=== PATIENT | female | born 2000 | race African-American/Black ===

== ENCOUNTER 2024-01-28 04:51 | Emergency (ER) | payer OTHER, SELFPAY ==
[2024-01-28 04:55] VITALS: BP 131/90; PULSE 124; RESP 18; TEMP 37; O2SAT 99; BMI 52.3
--- NOTE | 2024-01-28 05:25 | XR_ITS ---
Patient: DASH TEAGUE Facility:?[facility] Patient ID:?[id number] Site Patient ID:?[id number]. Site :?[id number] Study:?XRay-Chest 2 VIEW-01/28/2024 6:18:49 AM Ordering Physician:Braden Conroy Final Report: INDICATION: Chest pain. TECHNIQUE: Chest 2 views. COMPARISON: None. FINDINGS/ IMPRESSION: No acute cardiopulmonary process. No focal consolidation, effusion or pneumothorax. Cardiac size is within normal limit without pulmonary edema. No obvious osseous findings. Dictated by Adam Diggs MD @ 01/28/2024 6:33:47 AM Signed by:?Adam Diggs MD @01/28/2024 6:33:47 AM (Electronic Signature)
--- NOTE | 2024-01-28 05:27 | ED_ITS ---
HPI - General Adult General Date Seen: 01/28/24 <Marycarmen Garcia MD - Last Filed: 01/29/24 11:04> Chief complaint: Back Injury/Pain <Marycarmen Garcia MD - Last Filed: 01/29/24 11:04> Stated complaint: back pain <Marycarmen Garcia MD - Last Filed: 01/29/24 11:04> Time Seen by Provider: 01/28/24 04:55 <Marycarmen Garcia MD - Last Filed: 01/29/24 11:04> Source: patient and RN notes reviewed <Marycarmen Garcia MD - Last Filed: 01/29/24 11:04> Mode of arrival: ambulatory <Marycarmen Garcia MD - Last Filed: 01/29/24 11:04> Limitations: no limitations <Marycarmen Garcia MD - Last Filed: 01/29/24 11:04> History of Present Illness HPI narrative: Patient is a 23-year-old young woman who presents for evaluation of mid back pain which she says radiates down toward her low back. Pain started around 10 or 11 last night. She reports that she tried to sleep but at 3:00 a.m. got up due to inability to sleep because of pain. It is worse when she moves, better with rest. She says she had a temperature of a 100.9? earlier associated with some chills, has taken ibuprofen and NyQuil and fever has resolved. She denies urinary symptoms. Pain is pleuritic but she denies shortness of breath o r cough. No history of similar pain. Medical history reviewed, medications reviewed. <Marycarmen Garcia MD - Last Filed: 01/29/24 11:04> Related Data Home medications: Home Medications ?Medication ?Instructions ?Recorded ?Confirmed albuterol sulfate PO 01/28/24 clobetasol topical 01/28/24 clonazepam .ROUTE 01/28/24 okevqxeevmg-flegnpqiv-btbzpaha inhalation 01/28/24 lamotrigine .ROUTE 01/28/24 mepolizumab subcut 01/28/24 propranolol .ROUTE 01/28/24 tirzepatide (weight loss) subcut 01/28/24 venlafaxine PO 01/28/24 <Marycarmen Garcia MD - Last Filed: 01/29/24 11:04> Allergies/adverse reactions: Allergies Allergy/AdvReac Type Severity Reaction Status Date / Time levofloxacin (From Levaquin) Allergy Verified 01/28/24 05:03 <Marycarmen Garcia MD - Last Filed: 01/29/24 11:04> Review of Systems Status of ROS: Reports: 10 or more systems reviewed and unremarkable except as noted in History and below <Marycarmen Garcia MD - Last Filed: 01/29/24 11:04> PFSH [facility] Social History: Social History Smoking Status: Never smoker Do you use any of these nicotine containing products: None Non-prescribed substance use: denies use <Marycarmen Garcia MD - Last Filed: 01/29/24 11:04> Exam Narrative: Exam Narrative: Vital signs as noted above. In general, an alert, nontoxic young woman. She is breathing easily. Head: Normocephalic, atraumatic. Eyes: Pupils are equal reactive. Extraocular movements are full. Conjunctivae are normal. ENT: Mucous membranes are moist. Throat is normal. Neck: Supple without lymphadenopathy. Heart: Tachycardic and regular, no murmur. Lungs: Clear bilaterally. Few coarse crackles in the right base, no wheezes, no increased work of breathing. No CVA tenderness. Abdomen: Soft, nondistended, minimally tender. A little bit of epigastric tenderness without rebound guarding or rigidity. Negative Macedo's. Back: She has reproducible tenderness in the mid back just to the left of the spine in the lower thoracic area. Extremities: Well perfused. No edema. No calf tenderness. Pulses intact. Neurologic: Patient is alert and oriented to person and place. Speech is fluent. Face is symmetric. Moves all extremities equally. Affect: Anxious. Skin: Warm and dry. Well perfused. <Marycarmen Garcia MD - Last Filed: 01/29/24 11:04> Const: Vital Signs, click to edit/add: Vital Signs - 24 hr 01/28/24 04:55 01/28/24 06:07 Temperature 98.6 F Pulse Rate [Pulse Oximeter] 124 H 98 Respiratory Rate 18 18 Blood Pressure [Ri ght Upper Arm] 131/90 H 124/76 Pulse Oximetry 99 100 Oxygen Delivery Me thod Room Air Room Air <Marycarmen Garcia MD - Last Filed: 01/29/24 11:04> Vital Signs, click to edit/add: Vital Signs - 24 hr 01/28/24 04:55 01/28/24 06:07 Temperature 98.6 F Pulse Rate [Pulse Oximeter] 124 H 98 Respiratory Rate 18 18 Blood Pressure [Ri ght Upper Arm] 131/90 H 124/76 Pulse Oximetry 99 100 Oxygen Delivery Me thod Room Air Room Air <Patricia Call MD - Last Filed: 01/28/24 08:46> Documenting provider has reviewed patient's vital signs: yes <Marycarmen Garcia MD - Last Filed: 01/29/24 11:04> Course Course ED Course: Patient presents with back pain which seems to be somewhat reproducible wi th identifiable muscle spasm, but she notes fever at home, pleuritic pain, and she is tachycardic. Will evaluate with blood work, chest x-ray, urinalysis to rule out other potential causes such as pneumonia, pulmonary embolism, pyelonephritis, kidney stone, cholecystitis or biliary colic, pancreatitis etcetera. Will provide Toradol for pain to start. She had some pain relief with Toradol but not complete, had 4 mg of morphine IV as well. Tachycardia resolved, she complained of feeling more cold, temperature was rechecked and was normal. Labs notable for a normal white blood cell count, D-dimer very minimally elevated at 0.58, and LFTs were fairly significantly elevated with an AST in the 200s, ALT in the 100s. Repeat abdominal exam remained benign but I did order an ultrasound of the right upper quadrant to rule out cholecystitis or biliary colic. Lipase was normal. CRP was minimally elevated at 1.4 in she did have a very slight left shift with 78% neutrophils. Right upper quadrant ultrasound results a link below, sludge but no evidence of cholecystitis. Bilirubin and alk-phos are normal, and I think with absence of significant abdominal pain or tenderness, negative Macedo sign etcetera I do not think this represents cholecystitis. Chest x-ray by my review was negative, final radiology read was likewise negative. In an effort to be thorough, with her additional complaints of chills fever etcetera, I did order CT scan of the chest as well. This is pending at this time. This will allow us to further evaluate for pulmonary embolism as well as a more subtle pneumonia. This is signed out to the oncoming physician. I have reviewed all this with the patient. She does have reproducible muscular tenderness and I think overall my suspicion is that this is likely musculoskeletal back pain. If her CT scan does not show evidence of an alternative diagnosis I would recommend treatment with ibuprofen and cyclobenzaprine. Discussed that her elevated liver enzymes are likely related to fatty liver, overall symptoms right now are not suggestive of hepatitis, but we discussed that if abdominal pain worsens she develops nausea, vomiting, fevers, yellowing of skin or eyes etcetera that she should be seen again. Likewise, if pain is not improving over the next few days to week, follow-up with primary care. Dr. Sotomayor will follow-up on the CT scan, final disposition and plan pending. <Marycarmen Garcia MD - Last Filed: 01/29/24 11:04> Vital Signs Vital signs: Initial Vital Signs Temperature 98.6 F 01/28/24 04:55 Temperature Source Temporal Artery Scan 01/28/24 04:55 Pulse Rate 124 H 01/28/24 04:55 Respiratory Rate 18 01/28/24 04:55 Blood Pressure 131/90 H 01/28/24 04:55 Blood Pressure Mean 103 01/28/24 04:55 Blood Pressure Position Sitting 01/28/24 04:55 Pulse Oximetry 99 01/28/24 04:55 Oxygen Delivery Method Room Air 01/28/24 04:55 Vital Signs Temperature 98.6 F 01/28/24 04:55 Pulse Rate 124 H 01/28/24 04:55 Respiratory Rate 18 01/28/24 04:55 Blood Pressure 131/90 H 01/28/24 04:55 Pulse Oximetry 99 01/28/24 04:55 Oxygen Delivery Method Room Air 01/28/24 04:55 Temperature 98.6 F 01/28/24 04:55 Pulse Rate 91 01/28/24 08:59 Respiratory Rate 16 01/28/24 08:59 Blood Pressure 113/54 L 01/28/24 08:59 Pulse Oximetry 100 01/28/24 08:59 Oxygen Delivery Method Room Air 01/28/24 08:59 <Marycarmen Garcia MD - Last Filed: 01/29/24 11:04> Initial Vital Signs Temperature 98.6 F 01/28/24 04:55 Temperature Source Temporal Artery Scan 01/28/24 04:55 Pulse Rate 124 H 01/28/24 04:55 Respiratory Rate 18 01/28/24 04:55 Blood Pressure 131/90 H 01/28/24 04:55 Blood Pressure Mean 103 01/28/24 04:55 Blood Pressure Position Sitting 01/28/24 04:55 Pulse Oximetry 99 01/28/24 04:55 Oxygen Delivery Method Room Air 01/28/24 04:55 Vital Signs Temperature 98.6 F 01/28/24 04:55 Pulse Rate 124 H 01/28/24 04:55 Respiratory Rate 18 01/28/24 04:55 Blood Pressure 131/90 H 01/28/24 04:55 Pulse Oximetry 99 01/28/24 04:55 Oxygen Delivery Method Room Air 01/28/24 04:55 Temperature 98.6 F 01/28/24 04:55 Pulse Rate 91 01/28/24 08:59 Respiratory Rate 16 01/28/24 08:59 Blood Pressure 113/54 L 01/28/24 08:59 Pulse Oximetry 100 01/28/24 08:59 Oxygen Delivery Method Room Air 01/28/24 08:59 <Patricia Call MD - Last Filed: 01/28/24 08:46> Medications Administered Medications: Discontinued Medications Generic Name Dose Route Start Last Admin Trade Name Freq PRN Reason Stop Dose Admin Sodium Chloride 500 mls @ 500 mls/hr 01/28/24 05:25 01/28/24 06:07 0.9 % Sodium Chloride 500 Ml IV 01/28/24 06:24 Infused .Q1H ONE Infusion Ketorolac Tromethamine 15 mg 01/28/24 05:25 01/28/24 05:40 Ketorolac 15 Mg/Ml Inj IVP 01/28/24 05:26 15 mg ONCE ONE Administration <Marycarmen Garcia MD - Last Filed: 01/29/24 11:04> Discontinued Medications Generic Name Dose Route Start Last Admin Trade Name Freq PRN Reason Stop Dose Admin Sodium Chloride 500 mls @ 500 mls/hr 01/28/24 05:25 01/28/24 06:07 0.9 % Sodium Chloride 500 Ml IV 01/28/24 06:24 Infused .Q1H ONE Infusion Ketorolac Tromethamine 15 mg 01/28/24 05:25 01/28/24 05:40 Ketorolac 15 Mg/Ml Inj IVP 01/28/24 05:26 15 mg ONCE ONE Administration <Patricia Call MD - Last Filed: 01/28/24 08:46> Medical Decision Making Lab Data Labs: Lab Results 01/28/24 Range/Units 05:30 WBC 9.00 (4.50-11.00) K/uL RBC 5.16 (4.00-5.20) m/uL Hgb 13.4 (12.0-16.0) gm/dL Hct 43.1 (33.0-51.0) % MCV 84 (80-100) fL MCH 26 (26-34) pg MCHC 31 L (32-36) gm/dL RDW Coeff of [place] 13.6 (11.5-15.5) % Plt Count 339 (140-440) K/uL Neut % (Auto) 78.9 H (42.0-72.0) % Lymph % (Auto) 11.3 L (20-44) % [place] % (Auto) 7.4 (0.0-11.0) % Eos % (Auto) 1.4 (0.0-7.0) % Baso % (Auto) 0.3 (0.0-3.0) % Neut # (Auto) 7.10 H (1.7-7.0) K/uL Lymph # (Auto) 1.00 (0.90-2.90) K/uL [place] # (Auto) 0.70 (0.00-0.90) K/UL Eos # (Auto) 0.13 (0.00-0.50) K/uL Baso # (Auto) 0.03 (0.00-0.30) K/uL Abs Immat Gran (auto) 0.06 (0.00-0.30) K/uL Imm/Tot Granulo (auto) 0.7 % D-Dimer Quant (PE/DVT) 0.58 H (0.00-0.50) ug/ml Sodium 138 (135-149) mmol/L Potassium 4.1 (3.6-5.1) mmol/L Chloride 101 (96-114) mmol/L Carbon Dioxide 26 (20-32) mmol/L Anion Gap 11 (7-15) mEq/L BUN 14 (5-24) mg/dL Creatinine 0.8 (0.5-1.5) mg/dL Estimated Creat Clear 90.47 Estimated GFR 106 ml/min Glucose 100 (60-115) mg/dL Lactate 1.2 (0.5-1.9) mmol/L Calcium 10.1 (8.4-10.6) mg/dL Total Bilirubin 0.6 (0.1-1.5) mg/dL Direct Bilirubin 0.3 (0.0-0.5) mg/dL AST 257 H (12-35) U/L ALT 117 H (4-35) U/L Alkaline Phosphatase 75 (40-150) U/L C-Reactive Protein 1.4 H (0.5-1.0) mg/dL Total Protein 8.1 (6.0-8.3) g/dL Albumin 5.1 H (3.3-5.0) g/dL Lipase 83 (23-300) U/L Urine Color [place] A (Yellow) Urine Appearance Clear (Clear) Urine pH 6.0 (5.0-8.5) Ur Specific [place] >= 1.030 (1.000-1.030) Urine Protein 2+ A (Negative) Urine Glucose (UA) Negative (Negative) Urine Ketones 1+ A (Negative) Urine Blood Negative (Negative) Urine Nitrite Negative (Negative) Urine Bilirubin 1+ A (Negative) Urine Urobilinogen 1.0 (0.2-1.0) Ur Leukocyte Esterase Negative (Negative) Urine RBC 0-2 (0-2) Urine WBC 0-2 (0-5) Ur Squamous Epith Cells Moderate A (None-Few) Amorphous Sediment Moderate A (None) Urine Bacteria None (None) Urine HCG, Qual Negative (Negative) <Marycarmen Garcia MD - Last Filed: 01/29/24 11:04> Lab Results 01/28/24 Range/Units 05:30 WBC 9.00 (4.50-11.00) K/uL RBC 5.16 (4.00-5.20) m/uL Hgb 13.4 (12.0-16.0) gm/dL Hct 43.1 (33.0-51.0) % MCV 84 (80-100) fL MCH 26 (26-34) pg MCHC 31 L (32-36) gm/dL RDW Coeff of [place] 13.6 (11.5-15.5) % Plt Count 339 (140-440) K/uL Neut % (Auto) 78.9 H (42.0-72.0) % Lymph % (Auto) 11.3 L (20-44) % [place] % (Auto) 7.4 (0.0-11.0) % Eos % (Auto) 1.4 (0.0-7.0) % Baso % (Auto) 0.3 (0.0-3.0) % Neut # (Auto) 7.10 H (1.7-7.0) K/uL Lymph # (Auto) 1.00 (0.90-2.90) K/uL [place] # (Auto) 0.70 (0.00-0.90) K/UL Eos # (Auto) 0.13 (0.00-0.50) K/uL Baso # (Auto) 0.03 (0.00-0.30) K/uL Abs Immat Gran (auto) 0.06 (0.00-0.30) K/uL Imm/Tot Granulo (auto) 0.7 % D-Dimer Quant (PE/DVT) 0.58 H (0.00-0.50) ug/ml Sodium 138 (135-149) mmol/L Potassium 4.1 (3.6-5.1) mmol/L Chloride 101 (96-114) mmol/L Carbon Dioxide 26 (20-32) mmol/L Anion Gap 11 (7-15) mEq/L BUN 14 (5-24) mg/dL Creatinine 0.8 (0.5-1.5) mg/dL Estimated Creat Clear 90.47 Estimated GFR 106 ml/min Glucose 100 (60-115) mg/dL Lactate 1.2 (0.5-1.9) mmol/L Calcium 10.1 (8.4-10.6) mg/dL Total Bilirubin 0.6 (0.1-1.5) mg/dL Direct Bilirubin 0.3 (0.0-0.5) mg/dL AST 257 H (12-35) U/L ALT 117 H (4-35) U/L Alkaline Phosphatase 75 (40-150) U/L C-Reactive Protein 1.4 H (0.5-1.0) mg/dL Total Protein 8.1 (6.0-8.3) g/dL Albumin 5.1 H (3.3-5.0) g/dL Lipase 83 (23-300) U/L Urine Color [place] A (Yellow) Urine Appearance Clear (Clear) Urine pH 6.0 (5.0-8.5) Ur Specific [place] >= 1.030 (1.000-1.030) Urine Protein 2+ A (Negative) Urine Glucose (UA) Negative (Negative) Urine Ketones 1+ A (Negative) Urine Blood Negative (Negative) Urine Nitrite Negative (Negative) Urine Bilirubin 1+ A (Negative) Urine Urobilinogen 1.0 (0.2-1.0) Ur Leukocyte Esterase Negative (Negative) Urine RBC 0-2 (0-2) Urine WBC 0-2 (0-5) Ur Squamous Epith Cells Moderate A (None-Few) Amorphous Sediment Moderate A (None) Urine Bacteria None (None) Urine HCG, Qual Negative (Negative) <Patricia Call MD - Last Filed: 01/28/24 08:46> Imaging Data CT scan - chest: Attestation: I have reviewed the pertinent imaging results. <Patricia Malave MD - Last Filed: 01/28/24 08:46> Radiologist's impression: Patient: DASH TEAGUE Facility:?[facility] Patient ID:?[id number] Site Patient ID:?[id number]. Site :?2000 Study:?CT-Chest Angio W/ 95CC ISOVUE-370 PE PROTOCOL-01/28/2024 8:39:20 AM Ordering Physician:Braden Conroy Final Report: INDICATION: Pleuritic pain. COMPARISON: None TECHNIQUE: : CT examination of the chest was performed with the uneventful intravenous administration of 95 cc of Isovue 370 while thin axial sections were obtained from above the apices of the lungs to the lung bases. The examination was timed as a pulmonary artery angiogram. Please note that all CT scans at this facility use dose modulation, iterative reconstruction, and/or weight-based dosing when appropriate to reduce radiation dose to as low as reasonably achievable. FINDINGS: : HEART and MEDIASTINUM: The heart size is normal. There is no mediastinal or hilar adenopathy or mass. There is no pericardial effusion. PULMONARY ARTERIAL CIRCULATION: Significant limitations due to respiratory motion artifact and body habitus related beam attenuation factors. No large central pulmonary emboli. Smaller peripheral emboli would likely be nonvisualized on this exam LUNGS and PLEURAL SPACES: Patchy dependent and perifissural opacities likely atelectasis. No focal consolidation, infiltrate or mass.There is no pleural effusion, pneumothorax or pleural based mass. VISUALIZED UPPER ABDOMEN: Enlarged fatty infiltrated liver. Otherwise, the limited visualized upper abdominal structures appear normal. OSSEOUS STRUCTURES: Age-appropriate appearance. No acute fracture or destructive process. TUBES and LINES: None. IMPRESSION: 1. Significant limitations due to respiratory motion artifact and body habitus related beam attenuation factors. 2. No large central pulmonary emboli. Smaller peripheral emboli would likely be nonvisualized on this exam 3. Patchy basilar and dependent opacities likely atelectasis. No consolidation, infiltrate, mass, pleural effusion or pneumothorax. 4. No acute osseous abnormality. 5. Enlarged fatty infiltrated liver. Please note that all CT scans at this facility use dose modulation, iterative reconstruction, and/or weight-based dosing when appropriate to reduce radiation dose to as low as reasonably achievable. Dictated by Adalberto Garrett MD @ 01/28/2024 8:45:04 AM (Electronic Signature) <Patricia Call MD - Last Filed: 01/28/24 08:46> US - abdomen: Attestation: I have reviewed the pertinent imaging results. <Marycarmen Garcia MD - Last Filed: 01/29/24 11:04> Radiologist's impression: [place] [address] Diagnostic Imaging Report Patient: Dash Teague MR#: [id number] : 2000 Acct:[id number] Loc: ED Service Date: 01/28/[address]: Ordering Physician: Marycarmen Garcia M.D. Date of Service: 01/28/24 Procedure(s): US abdomen limited Accession Number(s): [id number] cc: Marycarmen Garcia M.D.; Provider,Not a Local~ For Patients: As a result of the Century Cures Act, medical imaging exams and procedure reports are released immediately into your electronic medical record. You may view this report before your referring provider. If you have questions, please contact your health care provider. Indication: Upper abdominal and back pain. Elevated liver function tests. Technique: Sonography of the abdomen was performed limited to the structures discussed below. Comparison: None Findings: The liver is enlarged measuring 18 centimeters. Abnormal echogenicity in a pattern most consistent with fatty infiltration. No focal mass. No intrahepatic biliary ductal dilation. The common duct measures 3 millimeters which is normal. Gallbladder wall thickness is normal at 1 millimeter. There is sludge. No calculi. No pericholecystic fluid. No reported sonographic Macedo`s sign. The right kidney is unremarkable in size and appearance. The right kidney measures 11.9 centimeters. Impression: 1. Hepatic steatosis. Enlarged liver. 2. Sludge within the gallbladder but no ultrasound evidence of acute cholecystitis or common duct obstruction. Dictated by Adalberto Garrett MD @ 01/28/2024 7:30:55 AM <Marycarmen Garcia MD - Last Filed: 01/29/24 11:04> Discharge Plan Discharge Clinical Impression: Back pain <Marycarmen Garcia MD - Last Filed: 01/29/24 11:04> Instructions: Back Pain (ED) <Marycarmen Garcia MD - Last Filed: 01/29/24 11:04> Additional Instructions: Your test today do not show a serious cause for your pain. Your ultrasound shows some sludge in the gallbladder, and fatty liver, which is probably the cause for your elevated liver function tests, although early hepatitis cannot be entirely ruled out. If you develop more abdominal pain, nausea, yellowing of the skin or eyes, or other worsening, you should be seen again. The CT scan does not show any evidence of pneumonia or blood clot in your lungs. Your urine does not look infected and there is no blood to suggest kidney stone. For now, I would recommend a trial of anti-inflammatories, ibuprofen 400 mg 3 times daily, along with a muscle relaxer as prescribed. Follow-up with primary care if not improving over the next few days, return to the ER at any time for acute worsening. Flexeril from [employer] provided, 1 tablet up to 3 times a day as needed, 15 prescribed. <Marycarmen Garcia MD - Last Filed: 01/29/24 11:04> Prescriptions: No Action lamotrigine .ROUTE venlafaxine PO mepolizumab [Nucala] subcut albuterol sulfate PO aoxweaxwgtw-izeqkdaek-ebcjgkym [Trelegy Ellipta] inhalation propranolol .ROUTE clonazepam .ROUTE clobetasol topical tirzepatide (weight loss) [Zepbound] subcut <Marycarmen Garcia MD - Last Filed: 01/29/24 11:04> Follow Up/Referrals: Provider,Not a Local [Primary Care Provider] - <Marycarmen Garcia MD - Last Filed: 01/29/24 11:04> Stand Alone Forms: MyHealth Info Instructions <Marycarmen Garcia MD - Last Filed: 01/29/24 11:04>
[2024-01-28] MEDS: KETOROLAC 15 MG/ML inj IVP (05:40)
[2024-01-28] MEDS: 0.9 % SODIUM CHLORIDE 500 ML 500 ML IV (05:40)
[2024-01-28 05:43] LABS: Lactate Sepsis w/Reflex* 1.2 mmol/L (0.5-1.9)
[2024-01-28 05:47] LABS: Basophils Absolute Auto 0.03 K/uL (0.00-0.30); Basophils Percent Auto 0.3 % (0.0-3.0); Eosinophils Absolute Auto 0.13 K/uL (0.00-0.50); Eosinophils Percent Auto 1.4 % (0.0-7.0); Hematocrit 43.1 % (33.0-51.0); Hemoglobin* 13.4 gm/dL (12.0-16.0); Immature Granulocytes Abs Auto 0.06 K/uL (0.00-0.30); Immature Granulocytes Pct Auto 0.7 %; Lymphocytes Percent Auto 11.3 % (20-44); Mean Corpuscular HGB Conc 31 gm/dL (32-36); Mean Corpuscular Hemoglobin 26 pg (26-34); Mean Corpuscular Volume 84 fL (80-100); Monocytes Percent Auto 7.4 % (0.0-11.0); Neutrophils Percent Auto 78.9 % (42.0-72.0); Platelet Count* 339 K/uL (140-440); RDW Coefficient of Variation % 13.6 % (11.5-15.5); Red Blood Count 5.16 m/uL (4.00-5.20)
[2024-01-28 05:53] LABS: Appearance Urine Clear (Clear); Bilirubin Urine 1+ (Negative); Blood Urine Negative (Negative); Color Urine Orange (Yellow); Glucose Urine Negative (Negative); Ketones Urine 1+ (Negative); Leukocyte Esterase Urine Negative (Negative); Nitrite Urine Negative (Negative); Protein Urine 2+ (Negative); Specific Gravity Urine >= 1.030 (1.000-1.030)
[2024-01-28 06:07] VITALS: BP 124/76; PULSE 98; RESP 18; O2SAT 100
[2024-01-28 06:08] LABS: Amorphous Sediment Urine Moderate; RBC Urine 0-2 (0-2); Squamous Epithelial Cell Urine Moderate (None-Few); Ur HCG Qualitative* Negative (Negative); WBC Urine 0-2 (0-5)
[2024-01-28 06:14] LABS: Albumin* 5.1 g/dL (3.3-5.0); Chloride* 101 mmol/L (96-114); Sodium* 138 mmol/L (135-149)
[2024-01-28 06:15] LABS: Potassium* 4.1 mmol/L (3.6-5.1)
[2024-01-28 06:17] LABS: Anion Gap 11 mEq/L (7-15); Carbon Dioxide* 26 mmol/L (20-32); Creatinine* 0.8 mg/dL (0.5-1.5); Est. Creatinine Clearance* 90.47; Estimated Glomerular Filt Rate 106 ml/min
[2024-01-28 06:18] LABS: Alanine Aminotransferase* 117 U/L (4-35); Alkaline Phosphatase* 75 U/L (40-150); Aspartate Amino Transferase* 257 U/L (12-35); Bilirubin Direct* 0.3 mg/dL (0.0-0.5); Bilirubin Total* 0.6 mg/dL (0.1-1.5); Blood Urea Nitrogen* 14 mg/dL (5-24); Calcium* 10.1 mg/dL (8.4-10.6); Glucose* 100 mg/dL (60-115); Lipase* 83 U/L (23-300); Total Protein* 8.1 g/dL (6.0-8.3)
[2024-01-28 06:21] LABS: C Reactive Protein* 1.4 mg/dL (0.5-1.0)
[2024-01-28 06:23] LABS: D Dimer Quantitative* 0.58 ug/ml (0.00-0.50)
[2024-01-28 06:33] LABS: Slide Review Reflex No
--- NOTE | 2024-01-28 06:49 | CRLHL7_ITS ---
For Patients: As a result of the Century Cures Act, medical imaging exams and procedure reports are released immediately into your electronic medical record. You may view this report before your referring provider. If you have questions, please contact your health care provider. Indication: Upper abdominal and back pain. Elevated liver function tests. Technique: Sonography of the abdomen was performed limited to the structures discussed below. Comparison: None Findings: The liver is enlarged measuring 18 centimeters. Abnormal echogenicity in a pattern most consistent with fatty infiltration. No focal mass. No intrahepatic biliary ductal dilation. The common duct measures 3 millimeters which is normal. Gallbladder wall thickness is normal at 1 millimeter. There is sludge. No calculi. No pericholecystic fluid. No reported sonographic Macedo`s sign. The right kidney is unremarkable in size and appearance. The right kidney measures 11.9 centimeters. Impression: 1. Hepatic steatosis. Enlarged liver. 2. Sludge within the gallbladder but no ultrasound evidence of acute cholecystitis or common duct obstruction. Dictated by Adalberto Garrett MD @ 01/28/2024 7:30:55 AM (Electronically Signed)
--- NOTE | 2024-01-28 07:42 | CRLHL7_ITS ---
For Patients: As a result of the Century Cures Act, medical imaging exams and procedure reports are released immediately into your electronic medical record. You may view this report before your referring provider. If you have questions, please contact your health care provider. INDICATION: Pleuritic pain. COMPARISON: None TECHNIQUE: : CT examination of the chest was performed with the uneventful intravenous administration of 95 cc of Isovue 370 while thin axial sections were obtained from above the apices of the lungs to the lung bases. The examination was timed as a pulmonary artery angiogram. Please note that all CT scans at this facility use dose modulation, iterative reconstruction, and/or weight-based dosing when appropriate to reduce radiation dose to as low as reasonably achievable. FINDINGS: : HEART and MEDIASTINUM: The heart size is normal. There is no mediastinal or hilar adenopathy or mass. There is no pericardial effusion. PULMONARY ARTERIAL CIRCULATION: Significant limitations due to respiratory motion artifact and body habitus related beam attenuation factors. No large central pulmonary emboli. Smaller peripheral emboli would likely be nonvisualized on this exam LUNGS and PLEURAL SPACES: Patchy dependent and perifissural opacities likely atelectasis. No focal consolidation, infiltrate or mass.There is no pleural effusion, pneumothorax or pleural based mass. VISUALIZED UPPER ABDOMEN: Enlarged fatty infiltrated liver. Otherwise, the limited visualized upper abdominal structures appear normal. OSSEOUS STRUCTURES: Age-appropriate appearance. No acute fracture or destructive process. TUBES and LINES: None. IMPRESSION: 1. Significant limitations due to respiratory motion artifact and body habitus related beam attenuation factors. 2. No large central pulmonary emboli. Smaller peripheral emboli would likely be nonvisualized on this exam 3. Patchy basilar and dependent opacities likely atelectasis. No consolidation, infiltrate, mass, pleural effusion or pneumothorax. 4. No acute osseous abnormality. 5. Enlarged fatty infiltrated liver. Please note that all CT scans at this facility use dose modulation, iterative reconstruction, and/or weight-based dosing when appropriate to reduce radiation dose to as low as reasonably achievable. Dictated by Adalberto Garrett MD @ 01/28/2024 8:45:04 AM (Electronically Signed)
[2024-01-28 08:59] VITALS: BP 113/54; PULSE 91; RESP 16; O2SAT 100
--- NOTE | 2024-01-28 09:23 | ED.NURSE ---
Patient having issues filling [facility] for Flexeril. Called [facility] and there was 2 prescriptions for Flexeril on her file. One from Dr. Garcia and one from Dr. Sotomayor. Both saw patient in the ER. Cancelled the one from Dr. Garcia and patient was able to fill the one from Dr. Sotomayor. Patient had no further questions at this time.
== END 2024-01-28 09:31 | disposition home or self-care (01) ==
PROVIDERS: Emergency Provider Emergency Medicine
DX: M54.9 Dorsalgia, unspecified (principal)
CPT/HCPCS: 36415; 71046; 71275; 76705; 80048; 80076; 81001; 81025; 83605; 83690; 85025; 85379; 86140; 96374; 99284; 99285; J1885; J7030; Q9967

== ENCOUNTER 2024-06-01 15:47 | Emergency (ER) | payer OTHER, SELFPAY ==
--- OUTSIDE RECORDS SUMMARY | 2024-06-01 15:49 | XMS_ITS | Clinical Summary ---
Author Organization [facility] Address [address] [place] [address] Care Team Providers Care Law Librarian Name Role Phone Jazmyne Jason MD Primary Care Provider [phone] Jazmyne Jason MD Unavailable [phone] Allergies Active Allergy Reactions Criticality Noted Date Comments Levofloxacin Other (See Comments) High 06/13/2018 Knee pain Peanut Itching High 06/17/2018 Itching tongue Medications Medication Sig Dispensed Refills Start Date End Date Status albuterol 2.5 mg /3 mL (0.083 %) neb solutionIndication s:Asthma Reliever,Other Asthma Indication Inhale 3 mL (2.5 mg) by nebulizer every 4 hours as needed 30 Vial 06/13/2018 Active albuterol-ipratrop ium (DUO-NEB) 0.5 mg-3 mg(2.5 mg base)/3 mL nebulizer solutionIndication s:Asthma Reliever Inhale 3 mL by nebulizer 4 times daily 10 Vial 06/13/2018 Active escitalopram oxalate (LEXAPRO) 10 mg tablet Take 10 mg by mouth at bedtime Active albuterol (VENTOLIN HFA) 90 mcg/actuation HFA inhaler Inhale 2 Puffs every 4 hours as needed Active fluticasone furoate-vilanterol (BREO ELLIPTA) 200-25 mcg/dose dsdv Inhale 1 Puff daily Activ e predniSONE (DELTASONE) 20 mg tabletIndications: Other Asthma Indication Use as directed 15 Tab 06/21/2018 Active tiotropium bromide (SPIRIVA RESPIMAT) 2.5 mcg/actuation mist Inhale 2.5 mcg daily 1 Inhaler 06/21/2018 Active Additional Information Patient taking differently:2.5 mcg INHALATIONAT BEDTIME, Reported on 07/30/2019 montelukast (SINGULAIR) 10 mg tabletIndications: Asthma Controller Take 1 Tab (10 mg) by mouth at bedtime 30 Tab 06/21/2018 Active carbinoxamine (PALGIC) 4 mg Take 4 mg by mouth once daily as needed (allergies) Active Active Problems Problem Noted Date Diagnosed Date Moderate episode of recurrent major depressive d isorder 07/29/2019 Social History Tobacco Use Types Packs/Day Years Used Date Smoking Tobacco: Never Smokeless Tobacco: Never Tobacco Cessation:Counseling Given: No Comments:denies alcolhol or illegal drugs Sex and Gender Information Value Date Recorded Sex Assigned at Not on file Gender Identity Not on file Sexual Orientation Not on file Last Filed Vital Signs Vital Sign Reading Time Taken Comments Blood Pressure 124/81 06/21/2018 3:15 PM CDT Pulse 96 06/21/2018 6:43 PM CDT Temperature 36.6 C (97.9 F) 06/21/2018 3:15 PM CDT Respiratory Rate 22 06/21/2018 6:43 PM CDT Oxygen Saturation 99% 06/21/2018 6:4 3 PM CDT Inhaled Oxygen Concentration - - Weight 117.9 kg (260 lb) 07/30/2019 11: 05 AM CDT per patient via phone intake Height 147.3 cm (4' 10) 07/30/2019 11: 05 AM CDT per patient via phone intake Body Mass Index 54.34 07/30/2019 11:05 AM CDT Plan of Treatment Health Maintenance Due Date Last Done Comments SARS-COV-2 (COVID) VACCINE ( season) 2023 Care Teams Law Librarian Relationship Specialty Start Date End Date Jazmyne Jason MD [address] [place] [address] PCP - General Pediatrics 06/13/18 Jazmyne Jason MD [address] [place] [address] PCP - Insured Pediatrics 06/13/18
--- OUTSIDE RECORDS SUMMARY | 2024-06-01 15:50 | XMS_ITS | Clinical Summary ---
Author Organization [facility] Address [address] [place] [address] Care Team Providers Care Nursing Unit Coordinator Name Role Phone Chen Wakefield Primary Care Provider [phone] Allergies Active Allergy Reactions Criticality Noted Date Comments Cat Dander *Unknown 05/07/2024 sneezing Levofloxacin *Unknown 05/07/2024 joint pain Peanut Angioedema 05/07/2024 peanut allergenic extract Medications albuterol sulfate 90 mcg/actuation aebs Inhale 2 Puffs by mouth every 4 hours. Active fluticasone pxz-wvjoxvynqfld-c ilanterol (TRELEGY ELLIPTA) 200-62.5-25 mcg inhaler Inhale 1 Puff by mouth once daily. Active Nucala 100 mg/mL subcutaneous autoinjector pen Inject 100 mg subcutaneous every 4 weeks. Active propranoloL (INDERAL) 20 mg tablet Take 1 Tablet by mouth once daily. Active venlafaxine (EFFEXOR XR) 150 mg Extended-Release capsule Take 1 Capsule by mouth once daily. Active venlafaxine (EFFEXOR XR) 75 mg cp24 Extended-Release capsule Take 1 Capsule by mouth once daily. Active lamoTRIgine (LAMICTAL ODT) [address] mg on the tongue. Place on tongue and move around in the mouth, will dissolve rapidly, can be swallowed with or without food or water. Active clonazePAM (KLONOPIN) 1 mg tabletIndications: panic disorder Take 1 mg by mouth two times daily. Active clobetasol (TEMOVATE) 0.05 % cream Apply topically to affected area(s) two times daily. Active medication order composterell Mccormickound- Compounded at 2.2 mg per week Active Active Problems Problem Noted Date Diagnosed Date Cervical cancer screening 05/19/2024 Overview (05/19/2024): 04/2024 NIL Plan: PAP/HPV due 04/2027 Agoraphobia 12/21/2022 Anxiety 12/21/2022 Asthma 12/21/2022 Depressive disorder 12/21/2022 Eczema 12/21/2022 Low back pain 12/21/2022 Mixed hyperlipidemia 12/21/2022 Morbid obesity 12/21/2022 Posttraumatic stress disorder 12/21/2022 Snoring 12/21/2022 Resolved Problems Problem Noted Date Diagnosed Date Resolved Date Excessive eating 12/21/2022 05/07/2024 Encounters Date Type Department Care Team Description 05/07/2024 3:40 PM KEY PUNCH OPERATOR Office Visit [facility] [address] [place] [address] Chen Wakefield, DO Physical (Ongoing sinus infection for about 5 months, Irregular periods (sometimes twice in a month)) 05/07/2024 Travel from Last 3 Months Immunizations Immunization Administration Dates Next Due INFLUENZA, IIV3 PF (AGE >= 6 MO) 12/13/2023 Social History Tobacco Use Types Packs/Day Years Used Date Smoking Tobacco: Never Smokeless Tobacco: Never Tobacco Cessation:Counseling Given: Not Answered Alcohol Use Standard Drinks/Week Comments Never 0 (1 standard drink = 0.6 oz pur e alcohol) PHQ-2 Answer Date Recorded PHQ-2 TOTAL SCORE 3 05/07/2024 Social Connections Answer Date Recorded Do you often feel lonely or isolated from those around you? 0 05/07/2024 Financial Resource Strain Answer Date R ecorded Difficulty of Paying Living Expenses 3 05/07/2024 Difficulty of Paying Living Expenses Not on file 05/07/2024 Food Insecurity Answer Date Recorded Do you worry your food will run out before you are able to buy more? 1 05/07/2024 Transportation Needs Answer Date Record ed Does lack of transportation keep you from medica l appointments? 1 05/07/2024 Does lack of transportation keep you from work, meetings or getting things that you need? 1 05/07/2024 Housing Stability Answer Date Recorded What is your housing situation today? 1 05/07/2024 Utilities Answer Date Recorded Do you have trouble paying f or utilities (for example, heat, electricity, water, phone)? 1 05/07/2024 Comments No Sex and Gender Information Value Date Recorded Sex Assigned at Not on file Legal Sex Female 3:34 PM KEY PUNCH OPERATOR Gender Identity Not on file Sexual Orientation Not on file Obstetrics History Last Filed Vital Signs Vital Sign Reading Time Taken Comments Blood Pressure 110/75 05/07/2024 3:54 PM KEY PUNCH OPERATOR Pulse 92 05/07/2024 3:54 PM KEY PUNCH OPERATOR Temperature - - Respiratory Rate - - Oxygen Saturation - - Inhaled Oxygen Concentration - - Weight 129 kg (284 lb 6.4 oz) 05/07/2024 3:54 PM KEY PUNCH OPERATOR Height 160 cm (5' 2.99) 05/07/2024 3:54 PM KEY PUNCH OPERATOR Body Mass Index 50.39 05/07/2024 3:54 PM KEY PUNCH OPERATOR Plan of Treatment Upcoming Encounters Date Type Department Care Team (Late st Contact Info) Description 07/07/2024 3:30 PM CDT Office Visit [facility] [address] [place], [place] [id number] [place] [address] [place] [address] Health Maintenance Due Date Last Done Comments HPV series for age 9-26 (1 - Risk 3-dose series) 10/18/2011 Tdap 10/18/2011 HIV for age 15-65 10/18/2015 Hepatitis C screening for ag e 18-79 2018 Tetanus booster 2020 COVID-19 vaccine series (2 - Moderna risk series) 01/10/2024 12/13/2023 BMI (ht and wt on same day) for age 18+ 05/07/2025 05/07/2024 Depression screening for age 12+ 05/07/2025 05/07/19 25 Pap test for age 21-65 05/07/2027 05/07/2024 Influenza Vaccine Completed 12/13/2023 Pneumococcal series for age 6-49 Aged Out No longer eligible based on patient's age to complete this topic Procedures Procedure Name Priority Date/Time Associated Diagnosis Comments FLATWARE MAKER THIN PREP PAP SCREEN IMAGED Routine 05/07/2024 5:00 PM KEY PUNCH OPERATOR Screening for cervical cancer from Last 3 Months Results * FLATWARE MAKER THIN PREP PAP SCREEN IMAGED [[id number]] (05/07/2024 5:00 PM KEY PUNCH OPERATOR) Case Report Gynecologic Cytology Report Case: [id number] Authorizing Provider: Chen Wakefield DO Collected: 05/07/2024 1700 Ordering Location: [facility] Received: 05/07/2024 1700 Clinic First Screen: Bernarda Whiteside Rescreen: Juan Boudreaux Specimen: FLATWARE MAKER ThinPrep Vial Screening, Cervical 05/18/2024 8:30 AM CDT [facility] INTERPRETATION/ RESULT NEGATIVE FOR INTRAEPITHELIAL LESION OR MALIGNANCY (NIL) (none) 05/18/2024 8:30 AM CDT [facility] at 0830 CDT SPECIMEN ADEQUACY Satisfactory for evaluation Endocervical component present 05/18/2024 8:30 AM CDT [facility] EN[facility] Date of LMP 04/08/2024 05/18/2024 8:30 AM CDT [facility] EN[facility] Last Pap Date first 05/18/2024 8:30 AM CDT [facility] Last Pap Result First Pap/Unknown 8:30 AM CDT [facility] Abnormal Pap or Alpha Bx in last 5 years No 05/18/2024 8:30 AM CDT [facility] Menstrual Status Irregular Periods 05/18/2024 8:30 AM CDT [facility] Alpha Bx Done Today No 05/18/2024 8:30 AM CDT [facility] Additional Information None given 05/18/2024 8:30 AM CDT [facility] Comment: Cytology is screened at [facility], Central Laboratory - [address], [place] [address] [address] [facility] - [address], [place] [address] and [facility] - [address], [place] [address] Interpreted at [facility], Central Laboratory - [address], [place] [address] Automated Review Successful 05/18/2024 8:30 AM CDT [facility] ENTRAL LABORATORY Comment:Specimen processed s uccessfully by automated board certified orthodontist device, ThinPrep Imaging System, [employer] Note The pap test is a screening technique, not a diagnostic procedure. It is used primarily to screen for squamous cancers and precursor lesions. Published studies have shown that it is subject to both false negative and false positive results. The pap test should not be used as the sole means to diagnose or exclude pre-malignant and malignant lesions. 05/18/2024 8:30 AM CDT [facility]- ENTROR LABORATORY Other (Cervical) Non-Blood / Unknown 05/07/2024 5:00 PM KEY PUNCH OPERATOR 05/07/2024 5:00 PM KEY PUNCH OPERATOR us Chen Wakefield DO PATHOLOGY/CYTOLOGY Final R esult Performing Organization Address City/State/[facility] Co de Phone Number [facility] [address] [place] [address], [place] from Last 3 Months Insurance [facility] [employer] Care Teams Nursing Unit Coordinator Relationship Specialty Start Date End Date Chen Wakefield DO [address] [place] [address] PCP - General Family Practice 04/23/24
--- OUTSIDE RECORDS SUMMARY | 2024-06-01 15:50 | XMS_ITS | Referral Summary ---
Author Organization [facility] Address [address] [place] [address] Phone Care Team Providers Care Reports Analysis Manager Name Role Phone Jazmyne Jason MD Primary Care Provider Allergies Active Allergy Reactions Criticality Noted Date Comments Levofloxacin Other (see comments) Peanut High 06/17/2018 Medications escitalopram (LEXAPRO) 10 mg tabletIndication s:depression Take 10 mg by mouth 1 (one) time each day. Active montelukast (SINGULAIR) 10 mg tabletIndication s:maintenance therapy for asthma Take 10 mg by mouth every night. Active ipratropium 0.5 mg/2.5 mL (ATROVENT eq.) 0.02 % nebulizer solutionIndicati ons:chronic obstructive asthma Take 250 mcg by nebulization every 6 (six) hours if needed. Active fluticasone propion-salmeter ol (ADVAIR HFA) 230-21 mcg/actuation inhalerIndicatio ns:Moderate persistent asthma with acute exacerbation Inhale 2 puffs 2 (two) times a day. 12 g 11 9 Active Additional Information Patient taking differently:2 puff inhalation 2 times daily,Indications: maintenance therapy for asthma, Informant: Mother, Reported on 07/19/2018 levalbuterol (XOPENEX) 1.25 mg/0.5 mL nebulizer solutionIndicati ons:Moderate persistent asthma without complication Take 0.5 mL (1.25 mg total) by nebulization every 4 (four) hours if needed for wheezing or shortness of breath. 50 each 11 9 Active levalbuterol (XOPENEX HFA) 45 mcg/actuation inhalerIndicatio ns:Moderate persistent asthma without complication Inhale 2-4 puffs every 4 (four) hours if needed for wheezing. 1 Inhaler 11 9 Active Active Problems Problem Noted Date Diagnosed Date Acute respiratory insufficiency 07/18/2018 Moderate persistent asthma without complication 07/12/2018 Obesity 07/12/2018 Eczema 07/12/2018 Depression 07/12/2018 Immunizations Name Administration Dates Next Due DTaP 10/27/2004, 3,04/19/2001,02/14,2000 H1N1 All Forms 03/15/2009 HPV, 9-VALENT 01/18/2018,07/18/2016 Hep A, Unspecified 11/10/2003,10/24/2002 Hep B, Unspecified 11/01/2001,07/23/2001, 002 HiB, Unspecified 04/22/2002, 2,02/14/2001,12/18 IPV 10/27/2004, 3,02/14/2001,12/18 Influenza, Split Virus, Triv alent, Preservative 12/26/2018,01/18/2018 Influenza, Unspecified 01/26/2017,2014,02/26/2014,01/25,01/15/2012,01/02/2011,12/23/2009 ,12/02/2008,12/18/2003,03/10/2003,01/11 Influenza, split virus, quad rivalent, preservative 01/26/2017 MMR 10/27/2004,11/01/2001 Meningococcal B(Trumenba) 12/26/2018 Meningococcal MCV4, Unspecified 06/12/2012 Meningococcal MCV4P 12/26/2018 Pfizer 12yr+ SARS-COV-2 Vacc ine (Purple Cap) 04/22/2020,03/31/2020 Pneumococcal Conjugate 7-Valent 10/25/19 03,11/01/2001,04/19/2001,02/14 Tdap 01/15/2012 Typhoid, Unspecified 10/01/2013 Varicella 10/21/2007,11/01/2001 Social History Tobacco Use Types Packs/Day Years Used Date Smoking Tobacco: Never Smokeless Tobacco: Never Alcohol Use Standard Drinks/Week Comments No 0 (1 standard drink = 0.6 oz pur e alcohol) Comments Unknown Sex and Gender Information Value Date Recorded Sex Assigned at Female 03/29/2020 5:35 PM WALLCOVERING TEXTURER Legal Sex Female 5:49 PM WALLCOVERING TEXTURER Gender Identity Female 03/29/2020 5:35 PM WALLCOVERING TEXTURER Sexual Orientation Straight 03/29/2020 5: 35 PM WALLCOVERING TEXTURER Last Filed Vital Signs Vital Sign Reading Time Taken Comments Blood Pressure 101/60 07/26/2018 9:35 AM CDT Pulse 95 07/26/2018 9:35 AM CDT Temperature 36.8 C (98.2 F) 12/26/2018 1:48 PM CDT Respiratory Rate 16 07/26/2018 9:35 AM CDT Oxygen Saturation 98% 07/26/2018 9:35 AM CDT Inhaled Oxygen Concentration - - Weight 115 kg (254 lb 6 oz) 12/26/2018 1:48 PM C DT Height 159.4 cm (5' 2.75) 12/26/2018 1:48 PM CD T Body Mass Index 45.42 12/26/2018 1:48 PM CDT Plan of Treatment Not on file Procedures Procedure Name Priority Date/Time Associated Diagnosis Comments CC AMB PHQ SCREEN Routine 12/26/2018 1:51 PM CDT Other specified counseling Adult general medical examination from Last 3 Months or Most Recently Relevant to Health Maintenance Insurance [employer] [place] [id number] [facility] [place] [address] [place] [phone] [facility] [employer] [place] [phone] Advance Directives For more information, please contact: [phone] * Full Code (Latest Code Status on File) Date Activated Date Inactivated Comments 07/18/2018 1:42 PM 07/20/2018 4:53 PM Care Teams Reports Analysis Manager Relationship Specialty Start Date End Date Jazmyne Jason MD [address] [place] [address] PCP - General Pediatric Medicine 06/10/18
--- OUTSIDE RECORDS SUMMARY | 2024-06-01 15:50 | XMS_ITS | Clinical Summary ---
Author Organization [facility] Address [address] [place] [address] Phone Care Team Providers Care Toll Testboard Worker Name Role Phone Jazmyne Jason MD Primary [...] Tdap 01/15/2012 Typhoid, Unspecified 10/01/2013 Varicella 10/21/2007,11/01/2001 Family History Medical History Relation Comments No Known Problems Brother Asthma Father Cancer Maternal Grandfather Hypertension Maternal Grandfather Colitis Maternal Grandmother Hypertension Maternal Grandmother Hypothyroidism Maternal Grandmother Lupus Maternal Grandmother Mother repo rts discoid without systemic symptoms. Non-alcoholic fatty liver Maternal Grandmother No Known Problems Mother Hypertension Paternal Grandfather Hypertension Paternal Grandmother Asthma Sister Celiac disease Neg Hx Chronic kidney disease Neg Hx Inflammatory bowel disease Neg Hx Mixed collagen vascular disease Neg Hx Nephrolithiasis Neg Hx Psoriasis Neg Hx Rheumatoid arthritis Neg Hx Sarcoidosis Neg Hx Scleroderma Neg Hx Relation Status Comments Brother Father Maternal Grandfather Maternal Grandmother Mother Paternal Grandfather Paternal Grandmother Sister Social History Tobacco Use Types Packs/Day Years Used Date Smoking Tobacco: Never Smokeless Tobacco: Never Alcohol Use Standard Drinks/Week Comments No 0 (1 standard drink = 0.6 oz pur e alcohol) Comments Unknown Sex and Gender Information Value Date Recorded Sex Assigned at Female 03/29/2020 5:35 PM PIPE SMOKING MACHINE OFFBEARER Legal Sex Female 5:49 PM PIPE SMOKING MACHINE OFFBEARER Gender Identity Female 03/29/2020 5:35 PM PIPE SMOKING MACHINE OFFBEARER Sexual Orientation Straight 03/29/2020 5: 35 PM PIPE SMOKING MACHINE OFFBEARER Last Filed Vital Signs Vital Sign Reading [...] 12/26/2018 1:48 PM CDT Plan of Treatment Health Maintenance Due Date Last Done Comments HPV Vaccines (3 - 3-dose series) 04/12/2018 01/18/2018, 07/18/2016 Meningococcal B Vaccine (2 of 2 - Trumenba SCDM 2-dose series) 06/27/2019 12/26/2018 PHQ Screening 12/27/2019 12/26/2018 DTaP,Tdap,and Td Vaccines (7 - Td or Tdap) 01/14/2022 01/15/2012, 10/27/2004, 04/22/2002, Additional history exists Influenza Vaccine (#1) 2023 9, 01/18/2018, 01/26/2017, Additional history exists COVID-19 Vaccine ( season) 2023 04/22/2020, 03/31/2020 Hepatitis B Vaccines Completed 11/01/2001, 07/23/2001, 04/19/2001 HIB Vaccines Completed 04/22/2002, 10/2001, 02/14/2001, Additional history exists Pneumococcal Aged Out 10/24/2002, 10/11, 04/19/2001, Additional history exists No longer eligible based on patient's age to complete this topic Hepatitis A Vaccines Completed 11/10/2003, 10/25/19 03 IPV Vaccines Completed 10/27/2004, 04/12, 02/14/2001, Additional history exists MMR Vaccines Completed 10/27/2004, 11/01/2001 Varicella Vaccines Completed 10/21/2007, 11/01/2001 Meningococcal Vaccine Completed 12/26/2018, 013 Rotavirus Vaccines Aged Out No longer eligible based on patient's age to complete this topic Procedures Procedure Name Priority Date/Time Associated Diagnosis Comments CC AMB PHQ SCREEN Routine 12/26/2018 1:51 PM CDT Other specified counseling Adult general medical examination from Last 3 Months or Most Recently Relevant to Health Maintenance Insurance [employer] [facility] [place] [phone] [facility] [address] [place] [phone] [facility] [place] [phone] Advance Directives For more information, please contact: [phone] * Full Code (Latest Code Status on File) Date Activated Date Inactivated Comments 07/18/2018 1:42 PM 07/20/2018 4:53 PM Care Teams Toll Testboard Worker Relationship Specialty Start Date End Date Jazmyne Jason MD [address] [address] PCP - General Pediatric Medicine 06/10/18
--- OUTSIDE RECORDS SUMMARY | 2024-06-01 15:50 | XMS_ITS | Data Portability ---
Author Organization [place] - [facility], [facility] Address [address] [address] [address] [place] [address] Care Team Providers Care Van Loader Name Role Phone CASSIE BARKLEY Primary Care Provider [phone] PAULA RASCON OTHER Assessment Encounter Date Assessment Date Assessment LastModified by Organization Details LastModified Time 12/21/2022 12/21/2022 Pre-visit: 7 minutes. Visit: 34 minutes. Post-visit: 5 minutes. Total time: 46 minutes. We discussed treatment plan including use of meal replacements, regular foods and structure of the treatment plan. We also reviewed patients insurance benefits for weight loss. 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 [email or web address] Not available 12/22/2022 16:06:25 02/06/2023 02/06/2023 Pre-visit: 7 minutes. Visit: 13 minutes. Post-visit: 5 minutes. Total time: 26 minutes with greater than 50% of the time spent on reviewing plan, education and coordinating care. [email or web address] Not available 02/06/2023 12:50:29 Plan of Treatment Reminders Order Date Submit Date Provider Last Modified By Organization Details Last Modified Time Details Appointments None record ed. Lab None record ed. Referral None record ed. Procedures None record ed. Surgeries None record ed. Imaging None record ed. Medication Orders None record ed. Patient TargetsNo targets recorded. Patient Instructions Encounter Date Encounter Id Patient Instructions Last Modified By Organization Details Last Modified Time 12/25/2022 [id number] [Real time video & audio were used during this telemedicine visit.] Begin Diet Slow and Steady: Kcal Initial Wt: 315# 10% Wt Loss Goal: 285# Pt reports no known food allergies or intolerances. We discussed how to count calories using Tracker sheet or MyFitnessPal, importance of food journaling, & sample meal plan given. We discussed how to prepare meals for program and choosing foods dining out. We discussed side effects such as hunger, constipation, RUSS, fatigue, and strategies to deal with this. Educated pt on [facility]/submitted request to join private group. Reviewed the dietary, physical activity, and behavior goals below. DIET: Slow and Steady (low calorie/high protein diet) SE discussed PA: encouraged walking 30 min 3-4x per week BEHAVIOR MODIFICATION: food journaling GOAL: Begin diet discussed above and start logging food intake in [facility] food diary. Start: 215 pm End: 347 pm Total: 47 min [email or web address] Not available 12/25/2022 16:48:56 01/01/2023 [id number] *Real Time Audio/Video Weight: 315 lbs Diet Intervention: Meet with the Dietitian. Topics Discussed: Counseling Introduction. Pt reported she's from [place]. Pt reported she moved to [place] when she was 15 years old. Pt reported her family consists of her parents, older sister, and younger brother. Pt reported she is using an outside Fire Protection Inspector. Pt reported she suffers from Depression. Pt reported her Depression worsened after she graduated from high school. Pt reported she had to be hospitalized for a few weeks for Suicide Ideation with a plan around 2 years ago. Pt reported she has experienced Passive Suicide a few months back. Pt reported her Protective Factors include her family, dog, and future aspirations such as writing a book or a career as a teacher. Pt reported she is working with an outside therapist and has a Safety Plan with them. Pt reported she is also working with a Psychiatrist, Dr. Dr. Paula Nieves. Pt is very hesitant about opening up about different topics. Pt reported she feels more comfortable only seeing her outside therapist, Jared Garcia. Behavioral Intervention: Call back the [facility] if she would like another session for more support. Start: 3:45 pm End: 4:25 pm Total: 40 mins [email or web address] Not available 01/01/2023 17:16:48 01/09/2023 [id number] Diet Intervention:foll ow diet program Behaviour Intervention:douglas arellano one small thing (more water) Current Weight Topics Discussed:pt was very quiet. pt would like to work on moving more/eating patterns/getting out more. we discussed adding water. habit stacking and the importance of starting small. we discussed Atomic Habits. Session ended early as pt was very quiet and I didn't want to push her. Real time audio and video were present during the telemed visit Start Time:10:15 End Time:10:38 Total Time:23 min [email or web address] Not available 01/09/2023 11:41:03 Reason for Referral None Reported. Results Created Date Observation Date Name Description Value Unit Range Abnormal Flag Note LastModifiedBy Organization Detail LastModifiedTime 02/06/2002/06/2023 CBC (INCL UDES DIFF/ PLT) white blood cell count 9.0 thous and/u L 3.8-10 .8 normal Not Available [facility] [address] [place] [address], [address], 02/06/2023 02:17:57 02/06/2002/06/2023 CBC (INCL UDES DIFF/ PLT) red blood cell count 4.69 mario on/uL 3.80-5 .10 normal Not Available [facility] [address] [place] [address], [address], 02/06/2023 02:17:57 02/06/20 23 02/06/2023 CBC (INCL UDES DIFF/ PLT) hemoglobin 12.0 g/dL 11.7-1 5.5 normal Not Available [facility] [address] [place] [address], [id number], 02/06/2023 02:17:57 02/06/20 23 02/06/2023 CBC (INCL UDES DIFF/ PLT) hematocrit 38.8 % 35.0-4 5.0 normal Not Available [employer] [facility] [address] [place] [address], [address], 02/06/2023 02:17:57 02/06/20 23 02/06/2023 CBC (INCL UDES DIFF/ PLT) MCV 82.7 fL 80.0-1 00.0 normal Not Available [facility] [address] [place], [place] [address], [address], 02/06/2023 02:17:57 02/06/20 23 02/06/2023 CBC (INCL UDES DIFF/ PLT) MCH 25.6 pg 27.0-3 3.0 low Not Available [facility] - [address] [place], [address], 02/06/2023 02:17:57 02/06/20 23 02/06/2023 CBC (INCL UDES DIFF/ PLT) MCHC 30.9 g/dL 32.0-3 6.0 low Not Available [facility] - [address] [place], [address], 02/06/2023 02:17:57 02/06/20 23 02/06/2023 CBC (INCL UDES DIFF/ PLT) RDW 13.2 % 11.0-1 5.0 normal Not Available [facility] - [address] [place], [address], 02/06/2023 02:17:57 02/06/20 23 02/06/2023 CBC (INCL UDES DIFF/ PLT) platelet count 328 thous and/u L 140-40 0 normal Not Available [facility] - [address] [place], [address], 02/06/2023 02:17:57 02/06/20 23 02/06/2023 CBC (INCL UDES DIFF/ PLT) MPV 10.1 fL 7.5-12 .5 normal Not Available [facility] - [address] [place], [address], 02/06/2023 02:17:57 02/06/20 23 02/06/2023 CBC (INCL UDES DIFF/ PLT) absolute neutrophils 5148 cells /uL 1500-7 800 normal Not Available [facility] - [address] [place], [address], 02/06/2023 02:17:57 02/06/20 23 02/06/2023 CBC (INCL UDES DIFF/ PLT) absolute lymphocytes 2979 cells /uL 850-39 00 normal Not Available [facility] - [address] [place], [address], 02/06/2023 02:17:57 02/06/20 23 02/06/2023 CBC (INCL UDES DIFF/ PLT) absolute monocytes 684 cells /uL 200-95 0 normal Not Available [facility] - [address] [place], [address], 02/06/2023 02:17:57 02/06/2002/06/2023 CBC (INCL UDES DIFF/ PLT) absolute eosinophils 135 cells /uL 15-500 normal Not Available [facility] [address] [place], [address], 02/06/2023 02:17:57 02/06/20 23 02/06/2023 CBC (INCL UDES DIFF/ PLT) absolute basophils 54 cells /uL 0-200 normal Not Available [facility] - [address] [place], [address], 02/06/2023 02:17:57 02/06/20 23 02/06/2023 CBC (INCL UDES DIFF/ PLT) neutrophils 57.2 % normal Not Available [facility] [address] [place], [address], 02/06/2023 02:17:57 02/06/20 23 02/06/2023 CBC (INCL UDES DIFF/ PLT) lymphocytes 33.1 % normal Not Available [facility] [address] [place], [address], 02/06/2023 02:17:57 02/06/20 23 02/06/2023 CBC (INCL UDES DIFF/ PLT) monocytes 7.6 % normal Not Available [facility] [address] [place], [address], 02/06/2023 02:17:57 02/06/20 23 02/06/2023 CBC (INCL UDES DIFF/ PLT) eosinophils 1.5 % normal Not Available [facility] [address] [place] [address], [address], 02/06/2023 02:17:57 02/06/20 23 02/06/2023 CBC (INCL UDES DIFF/ PLT) basophils 0.6 % normal Not Available [facility] [address] [place], [address], 02/06/2023 02:17:57 02/06/20 23 02/06/2023 TSH W/REF GLORIA TO FT4 TSH w/reflex to FT4 1.01 mIU/L normal Refer ence Range > or = 20 Years 0.40- 4.50 Pregn hailey Range s First trime ster 0.26- 2.66 Secon d trime ster 0.55- 2.73 Third trime ster 0.43- 2.91 Not Available [facility] [address] [place], [address], 02/06/2023 01:23:49 Result Notes None recorded. Problems Name Problem SNOMED Code Status Onset Date Resolution Date Notes Provider Name and Address Organization Details Recorded Time Depressive disorder 16853883 Active 2022 Kait Arce [facility] [place], [address], [facility] 3 15:48:15 Asthma 535946357 Active 2022 Kait Arce [facility] , [place], [address], [facility] 3 15:49:34 Eczema 90283829 Active 2022 Kait Arce [facility] , [place], [address], [facility] 3 15:49:39 Posttraumatic stress disorder 22826157 Active 2022 Kait Arce [facility] , [place], [address], [place] [facility] 3 15:49:43 Agoraphobia 65858400 Active [address], [place], [address], [place] [facility] 3 15:49:49 Morbid obesity 506672380 Active 2022 [address], [place], [address], [place] [facility] 3 15:51:10 Excessive eating 623740181 Active 2022 [address], [place], [address], [place] [facility] 3 15:51:41 Lack of exercise 12492111 Active 2022 [address], [place], [address], [place] [facility] 3 15:51:53 Fatigue 73509071 Active 20[address], [place], [address], [place] [facility] 3 15:51:58 Snoring 22927968 Active 20[address], [place], [address], [place] [facility] 3 15:52:33 Low back pain 011226221 Active 20[address], [place], [address], [place] [facility] 3 15:52:48 Anxiety 17026382 Active 20[address], [place], [address], [place] [facility] 3 15:53:16 Mixed hyperlipidemia 755943139 Active 2022 [address], [place], [address], [facility] 3 16:41:57 Notes:02/05/23 - TSH wnl, CB C wnl ex MCH 25.6(L) and MCHC 30.9(H) PCP Labs 12/14/22 - Tc 161, HDL 41(L), Tg 159(H), LDL 94, glucose 82, Cr and LFTs wnl, A1c 5.5 Problem Notes None recorded. Procedures Surgical History Date Name Laterality Status Provider Name and Address Organization Details Recorded Time extraction of wisdom tooth completed Debora Goldman [facility] 12/21/2022 12:54:19 Imaging Results None recorded. Procedure Notes None recorded. Medical Equipment None Reported. Allergies Allergen ID Allergen Name Allergen Category Reaction Reaction Severity Criticality Documentation Date Start Date Code Code System Note Provider Name and Address Organization Details Recorded Time 90252 Levaquin medicatio n Not available Not available Not available 12/21/2022 25195 2 RxNorm Debora Goldman [facility] 3 12:50:50 74627 peanut allergeni c extract food,medi cation angioedem a Not available Not available 12/21/2022 14986 8 RxNorm keeps epi pen Kait Felder [address], [place], [address], [facility] 3 16:34:35 59415 cat dander environme nt Not available Not available Not available 12/21/2022 60516 UNK Debora Goldman [facility] 3 12:51:03 Medications Name Sig Start Date Stop Date Status Note LastModified by Organization Details LastModified Time venlafaxine ER 75 mg capsule,ext ended release 24 hr Take 1 capsule every day by oral route. active Not Available Not Available No t Available venlafaxine ER 150 mg capsule,ext ended release 24 hr Take 1 capsule every day by oral route. active Not Available Not Available No t Available propranolol 20 mg tablet Take 1 tablet every day by oral route. active Not Available Not Available No t Available Abilify 5 mg tablet Take 1 tablet every day by oral route. active Not Available Not Available No t Available propranolol 12/21 completed Not Available Not Available Not Available Epi E-Z Pen active Not Available Not A vailable Not Available Abilify 12/21 completed Not Available Not Available Not Available Nucala 12/21 completed Not Available Not Available Not Available Kalee Judeta active Not sure of the dose Not Available Not Available Not Available Nucala 100 mg/mL subcutaneou s auto-inject or Inject 1 mL every month by subcutane ous route. active Not Available Not Available No t Available albuterol sulf 90 mcg/actuati on breath activated powder inhaler,sen sor Inhale 2 puffs every 4 hours by inhalatio n route. active Not Available Not Available No t Available Vitals Date Recorded Body height Body mass index (BMI) Body weight Provider Name and Address Organization Details Last Updated DateTime 12/21/2022 160.02 cm 55.8 kg/m2 622176.6 g Debora Goldman [facility] 12/21/2022 12:53:15 Date Recorded Body weight Body mass index (BMI) Body height Provider Name and Address Organization Details Last Updated DateTime 01/01/2023 338467.6 g 55.8 kg/m2 160.02 cm Amisha Magana [address], [place], [address] 01/01/2023 17:13:17 Date Recorded Body height Body mass index (BMI) Body weight Provider Name and Address Organization Details Last Updated DateTime 02/06/2023 160.02 cm 54.9 kg/m2 911250.63 g Cristina Turner [facility] 02/06/2023 12:33:58 Social History Question Answer Notes LastModified by Organizat ion Details LastModified Time Tobacco Smoking Status Never Smoker Debora Goldman null, [facility] 12/21/2022 12:54:06 What Is Your Level Of Alcohol Consumption? None [email or web address] Information not available 12/21/2022 Do You Use Any Illicit Or Recreational Drugs? No [email or web address] Information not available 12/21/2022 Sex: Unknown Functional Status None recorded. Mental Status None recorded. Family History Relationship Description Onset Age of this Age Resolved Age Notes LastModified by Organization Details LastModified Time Maternal Grandfather Family history of malignant neoplasm uncert ain type [email or web address] Not available 12/21/2022 16:42:26 Maternal Grandfather Hypertensive disorder [email or web address] Not available 2022 12:52:11 Maternal Grandmother Autoimmune disease [email or web address] Not available 2022 12:51:25 Maternal Grandmother Type 2 diabetes mellitus [email or web address] Not available 2022 12:51:58 Maternal Grandmother Hypertensive disorder [email or web address] Not available 2022 12:52:11 Sister Depressive disorder [email or web address] Not available 2022 12:51:35 Medical History No medical history recorded. Gynecological HistoryNo gynecological history recorded. Obstetrics History GPAL:G 0 P 0 0 0 0 Past Encounters Encounter ID Performer Location Encounter Start Date Encounter Closed Date Diagnosis/Indication Diagnosis SNOMED-CT Code Diagnosis ICD10 Code Diagnosis Note [id number] Kait Felder [facility] [address] [facility] [address] [place] [address] 12/21/2022 12:48:33 12/23/2022 10:22:16 Excessive eating 242002311 R63.2 Patient reports mindless/s tress overeating . Encouraged to meet with behavior change counselor. Morbid obesity 975419039 E66.01 The pt has class 3 morbid obesity with BMI of 55.8 and is at extremely high risk for CAD, cancer, and . Etiology is likely excess calories, processed foods, mindless/s tress overeating , lack of regular exercise and insufficie nt sleep. Advised intensive lifestyle interventi on including changes in diet, physical activity and behavior modificati on. No prior AOM-cautio n w/stimulan ts and wegovy given SI--case to ins. Pt sending recent labs-done with psychiatri st and PCP- will review and determine optimal weight loss approach. open to meeting with counselor, dietitian, and mindset head track coach-sche duled Patient reports biggest struggle/c hallenge to losing weight is physical limitation s and lack of motivation Goals: weight loss b/f breast reduction surgery, be more active, feel more confident peanut allergy-an gioedema-k eep epi pen Depressive disorder 7677 9003 F32.A PHQ9 20 severe w/SI; KEYLA-7 17 severe, MATTHEW score 4. -reports passive SI, no plan and that she has discussed this with both her psychiatri st Dr. Paula Rascon at [facility] and therapist which she sees routinely. Dx depression , anxiety with agoraphobi a, and PTSD. taking abilify 5 mg, venlafaxin e 225 mg, propranolo l 20 mg. reports improvemen t with medication and therapy. denies substance use. no prior attempts, protective factors dogs and sense of responsibi lity. reviewed reasons to call hot line/seek immediate care. pt also open to meeting with mindset head track coach and vitality counselor- scheduled Anxiety 58287655 F41.9 KEYLA 7 17-severe- with agoraphobi a, see depression note Fatigue 85295010 R53.83 Patient c/o daily fatigue. Will FU on labs. Advised patient to eat diet low in processed foods, get adequate sleep, and exercise. Asthma 989284986 J45.90 9 mgd by specialist , taking Nucala, trelegy and albuterol prn Lack of exercise 9431937 0 Z72.3 Contributi ng to weight gain. Encouraged 30 mins, 5-7 days a week. Work with certified personal finance counselor. Posttrauma tic stress disorder 54294372 F43.10 see depression note Low back pain 291250308 M54.50 feels related to having a large chest; also encouraged to treat with weight loss Snoring 20424129 R06.83 planning sleep study with specialist . Encouraged sleep study to rule out obstructiv e sleep apnea due to snoring and daytime fatigue. Reviewed that 10% weight loss improves sleep apnea by 50%. Standardiz ed adult depression screening tool completed 5434515637 64632 Z13.89 Mixed hyperlipidemia 267 250826 E78.2 mgd by PCP, no meds, f/u lipids. Patient advised to exercise, eat diet low in processed foods, and lose weight as appropriat e. [id number] Gina Vaughn [facility] [address] [facility] [address] [place] [address] 12/25/2022 15:16:20 12/25/2022 18:43:08 Dietary management surveillance 417410556 Z71.3 see discussion notes Body mass index 40+ - severely obese 568263001 Z68.43 see discussion notes [id number] Amisha Magana [facility] [address] [address] 01/01/2023 16:50:17 01/01/2023 18:45:55 Dietary management surveillance 610417944 Z71.3 See Discussion Notes. Body mass index 40+ - severely obese 666418127 Z68.43 See Discussion Notes. [id number] Laura Quintanilla [facility] [address] [address] 01/09/2023 05:43:18 01/09/2023 12:01:09 Dietary management surveillance 563443927 Z71.3 Body mass index 40+ - severely obese 307561338 Z68.43 [id number] Kait Felder [facility] [address] [address] 02/06/2023 08:22:52 02/06/2023 19:43:06 Excessive eating 830740708 R63.2 working with outside therapist and dietitian, focused on not missing meals and then compensati ng with larger portions later Morbid obesity 679210959 E66.01 The pt has class 3 morbid obesity with BMI of 54.9(initi al 55.8) Labs reviewed. 02/05/23 - TSH wnl, CBC wnl ex MCH 25.6(L) and MCHC 30.9(H); 12/14/22 - Tc 161, HDL 41(L), Tg 159(H), LDL 94, glucose 82, Cr and LFTs wnl, A1c 5.5. Discussed AOMs- no insurance coverage, tried metformin and had GI SE, caution w/stimulan ts, contrave, and wegovy h/o SI and other other medication s. discussed love pay and potential for neil to be gneric in the future -pt will consider. Patient had initial visit with dietitian, counselor, and mindset head track coach. prefers to continue with outside behavior health and outside dietitian. declines mtg with certified personal finance counselor. I welcomed her to return at any time Mixed hyperlipidemia 267 224949 E78.2 mgd by PCP, no meds, 12/14/22 - Tc 161, HDL 41(L), Tg 159(H), LDL 94, working with outside dietitian, reports inc daily veg/fiber Depressive disorder 3823 1005 F32.A history of passive SI, has continued regular visits with psychiatri st Dr. Paula Rascon at [facility] and outisde therapist, Jared Garcia. taking abilify, venlafaxin e, and propranolo l with improvemen t. pt met with [facility] and prefers to continue with outside therapist along with her psychiatri . caution with stimulants and wegovy. Anxiety 15618537 F41.9 see depression note Fatigue 22004118 R53.83 Advised patient to eat diet low in processed foods, get adequate sleep, and exercise. Lack of exercise 0789037 0 Z72.3 no formal exercise, declines mtg with sports medicine trainer Snoring 00350731 R06.83 planning sleep study with specialist . Encouraged sleep study to rule out obstructiv e sleep apnea due to snoring and daytime fatigue. Reviewed that 10% weight loss improves sleep apnea by 50%. Health Concerns Section Related Observation LastModified by Organization Detai ls LastModified Time None Recorded Concern Status LastModified by Organization Details LastModified Time None Recorded Advance Directives Directive None Recorded Payers Encounter Date Sequence Insurance Name Policy Number Policy Dixon Covered Member ID Dixon Member ID Guarantor Name 12/21/2022 1 [employer] Kaitlynn Cowden [id number] Kaitlynn Arlene Nyarinda Cowden 12/25/2022 1 [employer] Kaitlynn Cowden [id number] Kaitlynn Arlene Nyarinda Cowden 01/01/2023 1 [employer] Kaitlynn Cowden [id number] Kaitlynn Arlene Nyarinda Cowden 01/09/2023 1 [employer] Kaitlynn Cowden [id number] Kaitlynn Arlene Nyarinda Cowden 02/06/2023 1 [employer] Kaitlynn Cowden [id number] Kaitlynn Arlene Nyarinda Cowden Notes Date Note Type Note Provider Name and Address Organization Details Recorded Time 12/21/2022 text/html History of Prese nt Illness Questionnaire:Experi enced weight problems in childhood/teenage years Experienced weight issues for years Experienced moderate weight gain issues Current weight gain is intermittent Weight Loss Issues: Emotional/stress overeating; Injury or illness; Sedentary lifestyle; Physical limitations (Chest size, asthma), Mental limitations, agoraphobia Most successful weight loss attempt: Unsure Exercise: I don't exercise. Complains of Fatigue; Anxiety/depression Alcohol consumption: I don't drink. Has a working weight scale at home History of Present Illness Questionnaire (Eating habits):Breakfast: I don't typically eat breakfast. Occasionally, I'll have a boost protein shake Lunch: Usually leftovers from the night before, I.E. Rice and meat and vegetables, casserole, pasta and vegetable Dinner: Whatever is made in the house. Could be pasta, could be rice and pino. On nights where I cook for myself, I either don't eat, eat a fruit, or eat packaged noodles (not often) AM snack: Maybe a fruit. But I don't eat AM snacks often, if at all. PM snack: Dried mangoes, apple, tangerine, tamarind balls History of Present Illness Questionnaire (Sleeping habits):Not sure about sleep apnea diagnosis Patient reports: Snoring; Usually sleepy during the day Sleep time: 12 am-2am Wake up time: 7 am Average duration of sleep: 5-6 hrs Denies Feeling rested after adequate night's sleep; Difficulty falling asleep; Waking up during the night and having difficulty falling back asleep History of Present Illness Questionnaire (Binge eating):Never had binge eating episodes Never had episodes of eating large amounts of food when not hungry Patient can control how much they were eating and whether or not they can stop eating Doesn't eat more rapidly than normal during a binge Doesn't feel disgusted, depressed or guilty after the binge eating episodes Doesn't eat until they're uncomfortably full during the binge eating episodes Doesn't eat alone out of embarrassment during the binge eating episodes Denies binge eating episodes that happen at least once a week for at least three months Doesn't purges/vomits, fast or exercise excessively after the binge episodes Denies waking up in the middle of the night to eat Social history:Name of PCP:Dr. Cassie Barkley Past medical history:Asthma Eczema PTSD Agoraphobia Medications:trelegy Allergies:cats Surgeries:Celina tooth removal Family history:Autoimmune disease (Maternal Grandmother) Patient here to establish care for polyphagia and weight gain.Patient reports biggest struggle/challenge to losing weight is physical limitations and lack of motivationGoals: weight loss b/f breast reduction surgery, be more active, feel more confident Pt sending recent labs-done with psychiatrist and PCPMedications reviewed. PHQ9 20 severe w/SI; KEYLA-7 17 severe, MATTHEW score 4. -reports passive SI, no plan and that she has discussed this with both her psychiatrist Dr. Paula Rascon and therapist which she sees routinely. Dx depression, anxiety with agoraphobia, and PTSD. taking abilify 5 mg, venlafaxine 225 mg, propranolol 20 mg. reports improvement with medication and therapy. denies substance use. no prior attempts, protective factors dogs and sense of responsibility. Kait Felder [address], [place], [address], [facility] - [facility] 12/22/2022 16:06:45 02/06/2023 text/html Patient here for follow up for lab review, polyphagia and chronic obesity management. Patient has been with program since 12/21/22Patient has lost 5 lbs since the start of the program.Patient struggling with motivation and exerciseNo prior AOM- ins does not cover AOMs. caution w/stimulants, contrave, and wegovy h/o SI and other other medications.Patient had initial visit with dietitian, counselor, and mindset head track coach. prefers to continue with outside behavior health and outside dietitian. Focused on small changes and not missing meals Exercise no formal exercise, declines mtg with trainerShelen avg 5-6h/nightpolyphagia - working with outside therapist and dietitian, focused on not missing meals and then compensating with larger portions laterHPL - mgd by PCP, no meds, 12/14/22 - Tc 161, HDL 41(L), Tg 159(H), LDL 94, working with outside dietitian, reports inc daily veg/fiberdepression/ anxiety/PTSD/agoroph obia - history of passive SI, has continued regular visits with psychiatrist Dr. Paula Rascon at [facility] and outisde therapist, Jared Garcia. taking abilify, venlafaxine, and propranolol with improvement. pt met with [facility] and prefers to continue with outside therapist along with her psychiatrist. caution with stimulants and wegovy. Patient denies CP, SOB, insomnia, fatigue, dizziness, abdominal pain, N/V/D Labs reviewed. 02/05/23 - TSH wnl, CBC wnl ex MCH 25.6(L) and MCHC 30.9(H); 12/14/22 - Tc 161, HDL 41(L), Tg 159(H), LDL 94, glucose 82, Cr and LFTs wnl, A1c 5.5Medications reviewed and updated Kait Felder [address], [place], [address], [facility] - [facility] 02/06/2023 12:57:47 OBGyn Episode No OBEpisode recorded.
--- OUTSIDE RECORDS SUMMARY | 2024-06-01 15:50 | XMS_ITS | Clinical Summary ---
Author Organization [facility] Address [address] [place] [address] Care Team Providers Care Music Engraver Name Role Phone Bethel Amador MD Unavailable [phone] Shreya Iverson MD Unavailable Rebecca Xiong Unavailable [phone] Bethel Amador MD Unavailable [phone] Cassie Barkley MD Primary Care Provid er Allergies Active Allergy Reactions Criticality Noted Date Comments Levofloxacin 06/26/2018 Peanut Itching High 06/17/2018 Itching tongue Medications ipratropium/al buterol sulfate (DUONEB INHL) Inhale into the lungs. Active albuterol 2.5 mg /3 mL (0.083 %) nebulizer solution Inhale 3 mLs (2.5 mg total) into the lungs. 9 Active fluticasone-um eclidin-vilant er (TRELEGY ELLIPTA) 100-62.5-25 mcg inhaler 2 Active venlafaxine (EFFEXOR-XR) 150 MG 24 hr capsule 1 Active mepolizumab (NUCALA) 100 mg/mL AtIn Active promethazine-d extromethorpha n (PROMETHAZINE- DM) 6.25-15 mg/5 mL syrupIndicatio ns:Positive self-administe red antigen test for COVID-19 Take 5 mLs by mouth 4 (four) times daily as needed. 180 mL 4 Active Additional Information Patient not taking.Reported on 03/29/2023 ARIPiprazole (ABILIFY) 5 MG tablet Active propranoloL (INDERAL) 20 MG tablet Active EPINEPHrine (EPIPEN) 0.3 mg/0.3 mL AtIn injection (> 30 kg) 3 Active clobetasoL (TEMOVATE) 0.05 % ointment 3 Active nirmatrelvir-r itonavir (PAXLOVID) 300 mg (150 mg x 2)-100 mg tabletIndicati ons:Positive self-administe red antigen test for COVID-19 Take 3 tablets by mouth 2 (two) times daily. 30 tablet 4 Active benzonatate (TESSALON) 200 MG capsuleIndicat ions:Positive self-administe red antigen test for COVID-19 Take 1 capsule (200 mg total) by mouth 3 (three) times daily as needed for cough. 30 capsule 4 Active methylPREDNISo lone (MEDROL DOSEPACK) 4 mg tabletIndicati ons:Positive self-administe red antigen test for COVID-19 Follow package directions.. 1 each 4 Active mepolizumab (NUCALA) 100 mg/mL AtIn Inject 1 prefilled pen (100 mg) subcutaneously every 4 weeks 1 mL 11 5 Active Active Problems Patient Care Coordination No te Formatting of this note migh t be different from the original. 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 Dyspnea and respiratory abnormalities 06/28/2018 Encounters Date Type Department Care Team Description 04/17/2024 Telephone [facility]ON[facility]IVE SURGERY - [address], [address] [place] [address] Julieta Ortega MD from Last 3 Months Family History Medical History Relation Name Comments No Known Problems Brother No Known Problems Father No Known Problems Mother No Known Problems Sister Relation Name Status Comments Brother Father Mother Sister Social History Tobacco Use Types Packs/Day Years Used Date Smoking Tobacco: Never Passive Smoke Exposure: Never Smokeless Tobacco: Never Tobacco Cessation:Counseling Given: Not Answered Alcohol Use Standard Drinks/Week Comments Never 0 (1 standard drink = 0.6 oz pur e alcohol) AUDIT-C Answer Date Recorded Frequency of Alcohol Consumption Never 06/26/2018 Average Number of Drinks Not on file 019 Frequency of Binge Drinking Never 06/10 Comments No Sex and Gender Information Value Date Recorded Sex Assigned at Not on file Legal Sex Female 9:17 PM SKIN SPECIALIST Gender Identity Not on file Sexual Orientation Not on file Last Filed Vital Signs Vital Sign Reading Time Taken Comments Blood Pressure 134/84 03/29/2023 8:53 AM SKIN SPECIALIST Pulse 92 03/29/2023 8:53 AM SKIN SPECIALIST Temperature 36 C (96.8 F) 03/29/2023 8:53 AM SKIN SPECIALIST Respiratory Rate 16 03/29/2023 8:53 AM SKIN SPECIALIST Oxygen Saturation 98% 03/29/2023 8:53 AM SKIN SPECIALIST Inhaled Oxygen Concentration - - Weight 147 kg (324 lb) 03/29/2023 8:53 AM SKIN SPECIALIST Height 160 cm (5' 3) 03/29/2023 8:53 AM SKIN SPECIALIST Body Mass Index 57.39 03/29/2023 8:53 AM SKIN SPECIALIST Plan of Treatment Health Maintenance Due Date Last Done Comments Mood Screen 2012 HPV Vaccines (3 - 3-dose series) 04/12/2018 01/18/2018, 07/18/2016 Meningococcal B Vaccine (2 of 2 - Trumenba SCDM 2-dose series) 06/27/2019 12/26/2018 Lipid Screening 2020 Cervical Cancer Screening: Pap Smear 2021 Tetanus Booster Vaccines 01/14/2022 01/15/2012 COVID-19 Vaccine ( season) 2023 02/22/2021, 04/22/2020, 03/31/2020 Seasonal Influenza Vaccine (#1) 2023 12/16/2019, 12/26/2018, 01/18/2018, Additional history exists Hepatitis B Vaccines Completed 11/01/2001, 07/23/2001, 04/19/2001 Hib Vaccines Completed 04/22/2002, 10/2001, 02/14/2001, Additional history exists Pneumococcal Vaccine (0-5y, or all patients at risk) Aged Out 10/24/2002, 11/01/2001, 04/19/2001, Additional history exists No longer eligible based on patient's age to complete this topic Hepatitis A Vaccines Completed 11/10/2003, 10/25/19 03 Polio Vaccines Completed 10/27/2004, 04/12, 02/14/2001, Additional history exists Meningococcal (ACWY) Vaccines Completed 12/26/2018, 06/12/2012 Pediatric RSV Vaccines Aged Out No lo nger eligible based on patient's age to complete this topic Goals Goal Patient Goal Type Associated Problems Recent Progress Patient-Stated? Author Weight Management Action Plan Weight No Marie Queen CMA Note: Healthy Choices for Healthy Weight You can take control of your health by making choices for healthier weight and body mass index (BMI). BMI is one measure of your health and your risk for having problems in the future. Your choices about activities and eating affect your weight and BMI. It is normal for people to feel like they can t lose weight or keep it off. Every small step you take in that direction makes a difference. Talk with your provider about getting started. The lobsterman goal is to get to and stay at a healthy weight and BMI. Every time you choose healthier activity and eating, you are moving a little closer to that goal. Healthy Activity Choices: Be active in some way every day. It is ok to start slow! Try to be a little more active each week. Over a few months, your body will adjust to your active choices. Find little ways to be more active. Take the stairs instead of the elevator. Move around for 5 minutes every hour by taking a short walk. Stand, walk, or do simple exercises during screen time on your TV, computer, or phone. Long periods of sitting are not good for the body. Keep track of your activity with a s teps meter on a watch, phone, or pedometer. Work your way up to at least 5,000 steps/day. Impression TechnologiesPal and Primary Datan are examples free and fun apps that can help keep track of your activity. Try searching f itness in the suhas store for more ideas. Mix things up with different types of activities so you don t get bored and to avoid injuries. Examples: walking, biking, swimming, bowling, gardening, evens chi, weight lifting or other activities you like. Long-term, aim for 150 minutes of moderate-intensity activity like brisk walking a week. Or, aim for 75 minutes of vigorous activity like jogging, running or swimming each week. Healthy Eating Choices Eat a lot of fresh vegetables (2 to 3 cups/day) and fruits (about 2 cups/day). Cover your place with vegetables at each meal. Choose fresh vegetables and fruits instead of canned or packaged vegetables and fruits as often as you can. Eat more chicken and fish. Eat less fatty meat like beef and pork. Eat breakfast and make sure you get protein at breakfast. People who skip breakfast tend to weigh more. Pack a healthy lunch instead of eating out. Chew sugar-free gum between meals to cut down on unhealthy snacking. Choose not to eat much fast food , fried food, or food that is high in fat. Examples: comoran fries, hamburgers, chicken nuggets, and pizza. Choose drinks that are low in sugar or fructose like water, unsweetened tea, and low calorie drinks. Stay away from soft drinks, fruit juices (even n atural ), fruit drinks, energy drinks, sweetened iced tea, and whole or flavored milk. Limit alcoholic drinks to 1 a day. They are high in calories. Eat fewer starchy foods like white potatoes, white rice, bread, or other fast digesting carbohydrates. Helpful idea sources: Book: Eat This, Not That Online: eventuosity.StyleTech Google: Mediterranean diet [facility] [employer] Care Teams Music Engraver Relationship Specialty [place] [address] [facility] [address] [place], [place] [id number] PCP - General Pediatrics 01/27/22 Bethel Amador MD Pulmonary Disease 06/26/18 Shreya Iverson MD [address] [place] [address] [address] [place] [address] Otolaryngology 06/26/18 Rebecca Xiong SLP [address] [facility] [address] [place] [address] Speech Pathology 06/26/18 Bethel Amador MD Referring Physician Pulmonary Disease 06/26/18
--- OUTSIDE RECORDS SUMMARY | 2024-06-01 15:50 | XMS_ITS | Encounter Summary ---
Author Organization [facility] Address [address] [place] [address] Care Team Providers Care Bridge Ironworker Helper Name Role Phone Jazmyne Jason MD Primary Care Provider [phone] Jazmyne Jason MD Unavailable [phone] Encounter Details Date Type Department Care Team (Late st Contact Info) Description 07/01/2002 Record Update Interfaced Documentation [address] [facility] [address] [place] [address] Social History Tobacco Use Types Packs/Day Years Used Date Smoking Tobacco: Never Assessed Sex and Gender Information Value Date Recorded Sex Assigned at Not on file Gender Identity Not on file Sexual Orientation Not on file documented as of this encounter Plan of Treatment Not on file documented as of this encounter Visit Diagnoses Not on filedocumented in this encounter Care Teams Bridge Ironworker Helper Relationship Specialty Start Date End Date Jazmyne Jason MD [address] [facility] [address] [place] [address] PCP - General Pediatrics 06/13/18 Jazmyne Jason MD [address] [facility] [address] [place] [address] PCP - Insured Pediatrics 06/13/18 documented as of this encounter
--- OUTSIDE RECORDS SUMMARY | 2024-06-01 15:50 | XMS_ITS | Encounter Summary ---
Author Organization [facility] Address [address] [address] [place] [address] Care Team Providers Care Natural Resources Manager Name Role Phone Bethel Amador MD Unavailable [phone] Shreya Iverson MD Unavailable [phone] Rebecca Xiong Unavailable [phone] Bethel Amador MD Unavailable [phone] Cassie Barkley MD Primary Care Provid er Encounter Details Date Type Department Care Team (Late st Contact Info) Description 04/17/2024 Telephone [facility]LASTIC AND RECONSTRUCTIVE SURGERY [address] [address] Julieta Ortega MD [address] [place] [id number] Social History Tobacco Use Types Packs/Day Years Used Date Smoking Tobacco: Never Passive Smoke Exposure: Never Smokeless Tobacco: Never Alcohol Use Standard Drinks/Week Comments Never 0 (1 standard drink = 0.6 oz pur e alcohol) AUDIT-C Answer Date Recorded Frequency of Alcohol Consumption Never 06/26/2018 Average Number of Drinks Not on file 019 Frequency of Binge Drinking Never 06/10 Comments No Sex and Gender Information Value Date Recorded Sex Assigned at Not on file Legal Sex Female 9:17 PM CHIEF ENGINEER Gender Identity Not on file Sexual Orientation Not on file documented as of this encounter Miscellaneous Notes * Telephone Encounter - Gali Joe - 04/17/2024 10:19 AM CST Pt called in and stated she wanted to schedule an appt with Dr. Ortega but pt did not meet bmi requirements. Pt stated will call around and try to find someone else that will take her. F ENGINEER documented in this encounter Plan of Treatment Not on file documented as of this encounter Goals Goal Patient Goal Type Associated Problems Recent Progress Patient-Stated? Author Weight Management Action Plan Weight No Marie Queen, ELIF Note: Healthy Choices for Healthy Weight You [...] with your provider about getting started. The salvage determiner goal is to get to and stay [...] way up to at least 5,000 steps/day. MyPellePharmPal and Ticketflyn are examples free and fun apps that [...] food that is high in fat. Examples: beninese fries, hamburgers, chicken nuggets, and pizza. Choose [...] sources: Book: Eat This, Not That Online: Cogenta Systems.Toutiao Google: Mediterranean diet documented as of this encounter Visit Diagnoses Not on filedocumented in this encounter Additional Health Concerns Assessment Noted Time A Body Mass Index follow-up plan has been documented for the patient 04/14/2019 3:29 PM CHIEF ENGINEER documented as of this encounter Care Teams Natural Resources Manager Relationship Specialty [place] [address] [facility] [address] [place] [address] PCP - General Pediatrics 01/27/22 Bethel Amador MD Pulmonary Disease 06/26/18 Shreya Iverson MD [address] [facility] [address] [place] [address] Otolaryngology 06/26/18 Rebecca Xiong SLP [facility] [address] [address] Speech Pathology 06/26/18 Bethel Amador MD Referring Physician Pulmonary Disease 06/26/18 documented as of this encounter
[2024-06-01 15:51] VITALS: BP 133/86; PULSE 114; RESP 20; TEMP 36.2; BMI 49.6
--- NOTE | 2024-06-01 16:08 | CRLHL7_ITS ---
For Patients: As a result of the Cures Act, medical imaging exams and procedure reports are released immediately into your electronic medical record. You may view this report before your referring provider. If you have questions, please contact your health care provider. INDICATION: Shortness of breath. TECHNIQUE: Chest 2 views. COMPARISON: January 28, 2024. FINDINGS: Cardiovascular and mediastinum: Cardiomediastinal silhouette is within normal limits. Lungs and pleural spaces: Lungs are clear. No sign of pleural effusion. No pneumothorax. Bones and soft tissues: No significant findings. IMPRESSION: No acute findings and no significant change from the prior exam. Dictated by Janusz Coronado MD @ 06/01/2024 4:41:14 PM (Electronically Signed)
--- NOTE | 2024-06-01 16:09 | ED.SOB ---
HPI - SOB/Dyspnea General Chief Complaint: Shortness of Breath/Dyspnea Stated Complaint: chest pain, difficulty breathing, asthma Time Seen by Provider: 06/01/24 15:49 History of Present Illness HPI Narrative: This 23-year-old female comes in reporting flare-up of asthma symptoms. She does have an occasional cough. She is taking inhaled albuterol and also started prednisone 40 mg daily 3 days ago. That was when her symptoms began, 3 days ago. She also reports some chest discomfort when taking a deep breath. She has not had any fevers. She does not feel like she is fighting an infection. She uses an inhaler but states that she has not been using a spacer recently. She arrives here with oximetry at 95% on room air and has a slightly increased heart rate. Related Data Home Medications ?Medication ?Instructions ?Recorded ?Confirmed albuterol sulfate PO 01/28/24 clobetasol topical 01/28/24 clonazepam .ROUTE 01/28/24 ywkgkxjjjty-kxciprkvx-[id number] inhalation 01/28/24 lamotrigine .ROUTE 01/28/24 mepolizumab subcut 01/28/24 propranolol .ROUTE 01/28/24 tirzepatide (weight loss) subcut 01/28/24 venlafaxine PO 01/28/24 Allergies Allergy/AdvReac Type Severity Reaction Status Date / Time levofloxacin (From Levaquin) Allergy Verified 01/28/24 05:03 Review of Systems Status of ROS: Reports: 10 or more systems reviewed and unremarkable except as noted in History and below Narrative: Constitutional: No fevers, no weight gain or loss. Eyes: No discharge. No vision changes. HENT: No congestion, no sore throat, no ear pain. Cardiovascular: No chest pain, no palpitations. Respiratory: Shortness of breath and occasional cough. Gastrointestinal: No abdominal pain, no vomiting, no diarrhea. Genitourinary: No dysuria, no hematuria. Musculoskeletal: Normal range of motion. Skin: No rashes, no pruritis. Neurological: No dizziness, weakness, sensory change, speech change. Endo/Heme/Allergies: No bruising or bleeding. No polydipsia. Pysch: no suicidality, no anxiety, no insomnia. All other systems reviewed and are negative. PFSH PFSH Social History Smoking Status: Never smoker Do you use any of these nicotine containing products: None Non-prescribed substance use: denies use service: No Exam Narrative: Exam Narrative: Constitutional: Well-developed, well-nourished, no acute distress. HEENT: Normocephalic, atraumatic. Neck: Normal range of motion. Nontender. Supple. Heart: Regular. No murmurs. Normal rate. Intact distal pulses. Lungs: Clear to auscultation. No wheezes, rhonchi, or rales. Abdomen: Normal bowel sounds. Nontender. No rebound tenderness. Genitalia: Deferred. Back: No midline tenderness. Normal range of motion. Extremities: Normal range of motion. No injury. Skin: Intact. No rash. Warm. No erythema or pallor. Neurologic: No altered sensation. No weakness. Alert and oriented. Psychiatric: No suicidality. No anxiety or depression. No insomnia. Nursing notes and vitals signs are reviewed. Const: Vital Signs, click to edit/add: Vital Signs - 24 hr 06/01/24 15:51 Temperature 97.1 F L Pulse Rate [Left R adial] 114 H Respiratory Rate 20 Blood Pressure [Ri ght Upper Arm] 133/86 Oxygen Delivery Me thod Room Air Course Vital Signs Vital signs: Initial Vital Signs Temperature 97.1 F L 06/01/24 15:51 Temperature Source Temporal Artery Scan 06/01/24 15:51 Pulse Rate 114 H 06/01/24 15:51 Pulse Rhythm Regular 06/01/24 15:51 Respiratory Rate 20 06/01/24 15:51 Blood Pressure 133/86 06/01/24 15:51 Blood Pressure Mean 101 06/01/24 15:51 Oxygen Delivery Method Room Air 06/01/24 15:51 Vital Signs Temperature 97.1 F L 06/01/24 15:51 Pulse Rate 114 H 06/01/24 15:51 Respiratory Rate 20 06/01/24 15:51 Blood Pressure 133/86 06/01/24 15:51 Oxygen Delivery Method Room Air 06/01/24 15:51 Temperature 97.1 F L 06/01/24 15:51 Pulse Rate 114 H 06/01/24 15:51 Respiratory Rate 20 06/01/24 15:51 Blood Pressure 133/86 06/01/24 15:51 Oxygen Delivery Method Room Air 06/01/24 15:51 Medications Administered Medications: Discontinued Medications Generic Name Dose Route Start Last Admin Trade Name Dick PRN Reason Stop Dose Admin Albuterol/Ipratropium 1 neb 06/01/24 16:08 06/01/24 16:20 Iprat-Albut 0.5-2.5 Mg/3 Ml Neb IH 06/01/24 16:09 1 neb ONCE ONE Administration MDM - SOB/Dyspnea MDM Narrative Medical decision making narrative: This person comes in reporting asthma flare up but does arrive with reassuring vital signs and her lungs sound clear bilaterally. She is not using accessory muscles for breathing. Her oximetry on room air is at 95%. The patient did receive a DuoNeb and I obtained a chest x-ray which shows no acute findings. She is currently taking prednisone 40 mg daily. The patient states that she feels a little bit better after having a nebulizer treatment. Her chest x-ray is negative for infection. She is on the right medications at home. I did give her the tube from the nebulizer to use as a spacer. She is okay to be discharged home and encouraged to return if worsening symptoms occur. Imaging Data Chest x-ray: Radiologist's impression: Cardiovascular and mediastinum: Cardiomediastinal silhouette is within normal limits. Lungs and pleural spaces: Lungs are clear. No sign of pleural effusion. No pneumothorax. Discharge Plan Discharge Clinical Impression: Asthma with acute exacerbation Patient Disposition: Home, Self-Care Condition: Stable Additional Instructions: Continue current plans. Follow up with MD or return if worsening symptoms occur. Prescriptions: No Action lamotrigine .ROUTE venlafaxine PO mepolizumab [Nucala] subcut albuterol sulfate PO mxjaherkbll-iafiddvfu-mqjckwsp [Trelegy Ellipta] inhalation propranolol .ROUTE clonazepam .ROUTE clobetasol topical tirzepatide (weight loss) [Zepbound] subcut Follow Up/Referrals: Provider,Not a Local [Primary Care Provider] - Stand Alone Forms: [facility] Info Instructions
--- OUTSIDE RECORDS SUMMARY | 2024-06-01 16:17 | XMS_ITS | Clinical Summary ---
Author Organization [facility] Address [address] [facility] [place] [address] Care Team Providers Care Bond Manager Name Role Phone Bethel Amador MD Unavailable [phone] Shreya Iverson MD Unavailable Rebecca Xiong Unavailable [phone] Bethel Amador MD Unavailable [phone] Cassie Barkley MD Primary Care Provid er [...] Type Department Care Team Description 04/17/2024 Telephone [facility] PLASTIC AND RECONSTRUCTIVE SURGERY - [address], [address] [place] [address] Julieta Ortega MD from Last [...] on file Legal Sex Female 9:17 PM SPLITTER HEAD Gender Identity Not on file Sexual Orientation Not on file Last Filed Vital Signs Vital Sign Reading Time Taken Comments Blood Pressure 134/84 03/29/2023 8:53 AM SPLITTER HEAD Pulse 92 03/29/2023 8:53 AM SPLITTER HEAD Temperature 36 C (96.8 F) 03/29/2023 8:53 AM SPLITTER HEAD Respiratory Rate 16 03/29/2023 8:53 AM SPLITTER HEAD Oxygen Saturation 98% 03/29/2023 8:53 AM SPLITTER HEAD Inhaled Oxygen Concentration - - Weight 147 kg (324 lb) 03/29/2023 8:53 AM SPLITTER HEAD Height 160 cm (5' 3) 03/29/2023 8:53 AM SPLITTER HEAD Body Mass Index 57.39 03/29/2023 8:53 AM SPLITTER HEAD Plan of Treatment Health Maintenance Due Date [...] with your provider about getting started. The termite control technician goal is to get to and stay [...] way up to at least 5,000 steps/day. Dark Oasis StudiosPal and iDiDiDn are examples free and fun apps that [...] food that is high in fat. Examples: chilean fries, hamburgers, chicken nuggets, and pizza. Choose [...] sources: Book: Eat This, Not That Online: Cerelink.PictureMenu Google: Mediterranean diet [facility] Care Teams Bond Manager Relationship Specialty [place] [address] [facility] [address] [place], [place] [id number] PCP - General Pediatrics 01/27/22 Bethel Amador MD Pulmonary Disease 06/26/18 Shreya Iverson MD [address] [place] [address] [address] [place] [address] Otolaryngology 06/26/18 Rebecca Xiong SLP [address] [facility] [address] [place] [address] Speech Pathology 06/26/18 Bethel Amador MD Referring Physician Pulmonary Disease 06/26/18
--- OUTSIDE RECORDS SUMMARY | 2024-06-01 16:17 | XMS_ITS | Referral Summary ---
Author Organization [facility] Address [address] [place] [address] Phone Care Team Providers Care Grating Machine Operator Name Role Phone Jazmyne Jason MD Primary [...] Sex Assigned at Female 03/29/2020 5:35 PM ELECTRICAL LOGGER Legal Sex Female 5:49 PM ELECTRICAL LOGGER Gender Identity Female 03/29/2020 5:35 PM ELECTRICAL LOGGER Sexual Orientation Straight 03/29/2020 5: 35 PM ELECTRICAL LOGGER Last Filed Vital Signs Vital Sign Reading [...] [employer] [place] [phone] [facility] [place] [address] [place] [phone] [facility] [employer] [place] [phone] Advance Directives For more information, please contact: [phone] * Full Code (Latest Code Status on File) Date Activated Date Inactivated Comments 07/18/2018 1:42 PM 07/20/2018 4:53 PM Care Teams Grating Machine Operator Relationship Specialty Start Date End Date Jazmyne Jason MD [address] [place] [address] PCP - General Pediatric Medicine 06/10/18
--- OUTSIDE RECORDS SUMMARY | 2024-06-01 16:17 | XMS_ITS | Encounter Summary ---
Author Organization [facility] Address [address] [place] [address] Care Team Providers Care Laboratory Apparatus Glass Grinder Name Role Phone Jazmyne Jason MD Primary Care Provider [phone] Jazmyne Jason MD Unavailable [phone] Encounter Details Date Type Department Care Team (Late st Contact Info) Description 07/01/2002 Record Update Interfaced Documentation [address] [place] [address] Social History Tobacco Use Types Packs/Day Years Used Date Smoking Tobacco: Never Assessed Sex and Gender Information Value Date Recorded Sex Assigned at Not on file Gender Identity Not on file Sexual Orientation Not on file documented as of this encounter Plan of Treatment Not on file documented as of this encounter Visit Diagnoses Not on filedocumented in this encounter Care Teams Laboratory Apparatus Glass Grinder Relationship Specialty Start Date End Date Jazmyne Jason MD [address] [facility] [address] [place] [address] PCP - General Pediatrics 06/13/18 Jazmyne Jason MD [address] [facility] [address] [place] [address] PCP - Insured Pediatrics 06/13/18 documented as of this encounter
--- OUTSIDE RECORDS SUMMARY | 2024-06-01 16:17 | XMS_ITS | Clinical Summary ---
Author Organization [facility] Address [address] [place] [address] Care Team Providers Care Practice Administrator Name Role Phone Jazmyne Jason MD Primary Care Provider [phone] Jazmyne Jason MD Unavailable [phone] Allergies Active Allergy Reactions Criticality Noted Date [...] (COVID) VACCINE ( season) 2023 Care Teams Practice Administrator Relationship Specialty Start Date End Date Jazmyne Jason MD [address] [place] [address] PCP - General Pediatrics 06/13/18 Jazmyne Jason MD [address] [place] [address] PCP - Insured Pediatrics 06/13/18
--- OUTSIDE RECORDS SUMMARY | 2024-06-01 16:17 | XMS_ITS | Encounter Summary ---
Author Organization [facility] Address [address] [address] [place] [address] Care Team Providers Care Third Officer Name Role Phone Bethel Amador MD Unavailable [phone] Shreya Iverson MD Unavailable + [phone] Rebecca Xiong Unavailable [phone] Bethel Amador MD Unavailable [phone] Cassie Barkley MD Primary Care Provid er Encounter Details Date Type Department Care Team (Late st Contact Info) Description 04/17/2024 Telephone [facility] PLASTIC AND RECONSTRUCTIVE SURGERY [address] [address] Julieta Ortega MD [address] [place] [address] Social History Tobacco Use Types Packs/Day Years [...] on file Legal Sex Female 9:17 PM SOCIALLY RESPONSIBLE INVESTMENT ADVISER Gender Identity Not on file Sexual Orientation [...] find someone else that will take her. [employer] RESPONSIBLE INVESTMENT ADVISER documented in this encounter Plan of Treatment [...] with your provider about getting started. The watcher automat long goods goal is to get to and stay [...] way up to at least 5,000 steps/day. MyAzelon PharmaceuticalsPal and Inlet Technologiesn are examples free and fun apps that [...] food that is high in fat. Examples: indian fries, hamburgers, chicken nuggets, and pizza. Choose [...] sources: Book: Eat This, Not That Online: GoBeMe.Yi Fang Education Google: Mediterranean diet documented as of this encounter Visit Diagnoses Not on filedocumented in this encounter Additional Health Concerns Assessment Noted Time A Body Mass Index follow-up plan has been documented for the patient 04/14/2019 3:29 PM SOCIALLY RESPONSIBLE INVESTMENT ADVISER documented as of this encounter Care Teams Third Officer Relationship Specialty [place] [address] [facility] [address] [place] [address] PCP - General Pediatrics 01/27/22 Bethel Amador MD Pulmonary Disease 06/26/18 Shreya Iverson MD [address] [facility] [address] [place] [address] Otolaryngology 06/26/18 Rebecca Xiong SLP [facility] [address] [address] Speech Pathology 06/26/18 Bethel Amador MD Referring Physician Pulmonary Disease 06/26/18 documented as of this encounter
--- OUTSIDE RECORDS SUMMARY | 2024-06-01 16:17 | XMS_ITS | Clinical Summary ---
Author Organization [facility] Address [address] [place] [address] Phone Care Team Providers Care Agricultural Engineer Name Role Phone Jazmyne Jason MD Primary [...] Sex Assigned at Female 03/29/2020 5:35 PM ADVANCE AGENT Legal Sex Female 5:49 PM ADVANCE AGENT Gender Identity Female 03/29/2020 5:35 PM ADVANCE AGENT Sexual Orientation Straight 03/29/2020 5: 35 PM ADVANCE AGENT Last Filed Vital Signs Vital Sign Reading [...] Maintenance Insurance [facility] [employer] [facility] [place] [id number] [facility] [address] [address] [place] [phone] [facility] [place] [phone] Advance Directives For more information, please contact: [phone] * Full Code (Latest Code Status on File) Date Activated Date Inactivated Comments 07/18/2018 1:42 PM 07/20/2018 4:53 PM Care Teams Agricultural Engineer Relationship Specialty Start Date End Date Jazmyne Jason MD [address] [address] PCP - General Pediatric Medicine 06/10/18
--- OUTSIDE RECORDS SUMMARY | 2024-06-01 16:17 | XMS_ITS | Clinical Summary ---
Author Organization [facility] Address [address] [place] [address] Care Team Providers Care Tool And Die Engineer Name Role Phone Chen Wakefield Primary Care Provider [phone] Allergies Active Allergy Reactions Criticality Noted Date Comments Cat Dander *Unknown 05/07/2024 sneezing Levofloxacin *Unknown 05/07/2024 joint pain Peanut Angioedema 05/07/2024 peanut allergenic extract Medications albuterol sulfate 90 mcg/actuation aebs Inhale 2 Puffs by mouth every 4 hours. Active fluticasone vhw-bphfzjtvbpan-x ilanterol (TRELEGY ELLIPTA) 200-62.5-25 mcg inhaler Inhale [...] Department Care Team Description 05/07/2024 3:40 PM CUSTOMER EXPERIENCE INTERN Office Visit [facility] [address] [place] [address] Chen Wakefield, DO Physical (Ongoing sinus infection [...] on file Legal Sex Female 3:34 PM CUSTOMER EXPERIENCE INTERN Gender Identity Not on file Sexual Orientation Not on file Obstetrics History Last Filed Vital Signs Vital Sign Reading Time Taken Comments Blood Pressure 110/75 05/07/2024 3:54 PM CUSTOMER EXPERIENCE INTERN Pulse 92 05/07/2024 3:54 PM CUSTOMER EXPERIENCE INTERN Temperature - - Respiratory Rate - - Oxygen Saturation - - Inhaled Oxygen Concentration - - Weight 129 kg (284 lb 6.4 oz) 05/07/2024 3:54 PM CUSTOMER EXPERIENCE INTERN Height 160 cm (5' 2.99) 05/07/2024 3:54 PM CUSTOMER EXPERIENCE INTERN Body Mass Index 50.39 05/07/2024 3:54 PM CUSTOMER EXPERIENCE INTERN Plan of Treatment Upcoming Encounters Date Type Department Care Team (Late st Contact Info) Description 07/07/2024 3:30 PM CDT Office Visit [facility] [address] [place], [place] [id number] [place] [address] [place] [address] Health Maintenance Due Date Last Done Comments [...] Procedure Name Priority Date/Time Associated Diagnosis Comments SHIP PILOT THIN PREP PAP SCREEN IMAGED Routine 05/07/2024 5:00 PM CUSTOMER EXPERIENCE INTERN Screening for cervical cancer from Last 3 Months Results * SHIP PILOT THIN PREP PAP SCREEN IMAGED [[id number]] (05/07/2024 5:00 PM CUSTOMER EXPERIENCE INTERN) Case Report Gynecologic Cytology Report Case: [id number] Authorizing Provider: Chen Wakefield DO Collected: 05/07/2024 1700 Ordering Location: [facility] Received: 05/07/2024 1700 Clinic First Screen: Bernarda [place] Rescreen: Juan Boudreaux Specimen: SHIP PILOT ThinPrep Vial Screening, Cervical 05/18/2024 8:30 AM CDT [facility] INTERPRETATION/ RESULT NEGATIVE FOR INTRAEPITHELIAL LESION OR MALIGNANCY (NIL) (none) 05/18/2024 8:30 AM CDT [facility] at 0830 CDT SPECIMEN ADEQUACY Satisfactory for evaluation Endocervical component present 05/18/2024 8:30 AM CDT [facility] Date of LMP 04/08/2024 05/18/2024 8:30 AM CDT [facility] EN[facility]AL LAB[facility] Last Pap Date first 05/18/2024 8:30 AM CDT [facility] Last Pap Result First Pap/Unknown 8:30 AM CDT [facility] Abnormal Pap or [place] Bx in last 5 years No 05/18/2024 8:30 AM CDT [facility] Menstrual Status Irregular Periods 05/18/2024 8:30 AM CDT [facility] [place] Bx Done Today No 05/18/2024 8:30 AM CDT [facility] Additional Information None given 05/18/2024 8:30 AM CDT [facility]ORY Comment: Cytology is screened at [facility], Central Laboratory - [address], [place] [address] and [facility] - [address], [place] [address] and [facility] - [address], [place] [address] Interpreted at [facility], Central Laboratory - [address], [place] [address] Automated Review Successful 05/18/2024 8:30 AM CDT [facility] LABORATORY-C ENTRAL LABORATORY Comment:Specimen processed s uccessfully by automated funeral car chauffeur device, ThinPrep Imaging System, [employer] Note The pap test is a [...] and malignant lesions. 05/18/2024 8:30 AM CDT [facility] LABORATORY- ENTRTX LABORATORY Other (Cervical) Non-Blood / Unknown 05/07/2024 5:00 PM CUSTOMER EXPERIENCE INTERN 05/07/2024 5:00 PM CUSTOMER EXPERIENCE INTERN us Chen Wakefield DO PATHOLOGY/CYTOLOGY Final R esult Performing Organization Address City/State/[facility] Co de Phone Number [facility] [address] [place] [address], [place] from Last 3 Months Insurance [facility] Care Teams Tool And Die Engineer Relationship Specialty Start Date End Date Chen Wakefield DO [address] [place] [address] PCP - General Family Practice 04/23/24
[2024-06-01] MEDS: IPRAT-ALBUT 0.5-2.5 MG/3 ML NEB 1 NEB IH (16:20)
== END 2024-06-01 17:01 | disposition home or self-care (01) ==
PROVIDERS: Emergency Provider Emergency Medicine Emergency Medical Services
DX: J45.901 Unspecified asthma with (acute) exacerbation (principal)
CPT/HCPCS: 71046; 99283; 99284

== ENCOUNTER 2024-12-07 15:26 | Emergency (ER) | payer OTHER, SELFPAY ==
[2024-12-07] VITALS (12 sets, daily range): BP systolic 108–142; BP diastolic 73–108; PULSE 85–101; RESP 12–27; TEMP 36.6; O2SAT 98–100
--- OUTSIDE RECORDS SUMMARY | 2024-12-07 15:28 | XMS_ITS | Clinical Summary ---
Author Organization [facility] Address [address] [place] [address] Care Team Providers Care Child Care Coordinator Name Role Phone Bethel Amador MD Unavailable [phone] Shreya Iverson MD Unavailable Rebecca Xiong Unavailable [phone] Bethel Amador MD Unavailable [phone] Cassie Barkley MD Primary Care Provid er [...] hyperfunction 06/28/2018 Dyspnea and respiratory abnormalities 06/28/2018 Family History Medical History Relation Name Comments [...] on file Legal Sex Female 9:17 PM ORACLE WEBCENTER CONSULTANT Gender Identity Not on file Sexual Orientation Not on file Last Filed Vital Signs Vital Sign Reading Time Taken Comments Blood Pressure 134/84 03/29/2023 8:53 AM ORACLE WEBCENTER CONSULTANT Pulse 92 03/29/2023 8:53 AM ORACLE WEBCENTER CONSULTANT Temperature 36 C (96.8 F) 03/29/2023 8:53 AM ORACLE WEBCENTER CONSULTANT Respiratory Rate 16 03/29/2023 8:53 AM ORACLE WEBCENTER CONSULTANT Oxygen Saturation 98% 03/29/2023 8:53 AM ORACLE WEBCENTER CONSULTANT Inhaled Oxygen Concentration - - Weight 147 kg (324 lb) 03/29/2023 8:53 AM ORACLE WEBCENTER CONSULTANT Height 160 cm (5' 3) 03/29/2023 8:53 AM ORACLE WEBCENTER CONSULTANT Body Mass Index 57.39 03/29/2023 8:53 AM ORACLE WEBCENTER CONSULTANT Plan of Treatment Health Maintenance Due Date Last Done Comments Mood Screen 2012 HPV Vaccines (3 - 3-dose series) 04/12/2018 01/18/2018, 07/18/2016 Meningococcal B Vaccine (2 of 2 - Trumenba SCDM 2-dose series) 06/27/2019 12/26/2018 Lipid Screening 2020 Cervical Cancer Screening: Pap Smear 2021 Cervical Cancer Screening 2021 Tetanus Booster Vaccines 01/14/2022 01/15/2012 COVID-19 Vaccine ( season) 2024 02/22/2021, 04/22/2020, 03/31/2020 Seasonal Influenza Vaccine (#1) 2024 12/16/2019, 12/26/2018, 01/18/2018, Additional history exists Hepatitis [...] your provider about getting started. The termite exterminator goal is to get to and stay [...] way up to at least 5,000 steps/day. Oasmia PharmaceuticalPal and Ship Maten are examples free and fun apps that [...] food that is high in fat. Examples: croatian fries, hamburgers, chicken nuggets, and pizza. Choose [...] sources: Book: Eat This, Not That Online: Social Intelligence.Smart Device Media Google: Mediterranean diet Insurance [employer] EM[employer]OYEE Care Teams Child Care Coordinator Relationship Specialty [place] [address] [facility] [address] [place], [place] [id number] PCP - General Pediatrics 01/27/22 Bethel Amador MD Pulmonary Disease 06/26/18 Shreya Iverson MD [facility] [address] [place] [address] Otolaryngology 06/26/18 Rebecca Xiong SLP [address] [facility] [address] [place] [address] Speech Pathology 06/26/18 Bethel Amador MD Referring Physician Pulmonary Disease 06/26/18
--- OUTSIDE RECORDS SUMMARY | 2024-12-07 15:28 | XMS_ITS | Clinical Summary ---
Author Organization [facility] Address [address] [place] [address] Care Team Providers Care Flight Agent Name Role Phone Jazmyne Jason MD Primary Care Provider [phone] Jazmyne Jason MD Unavailable [phone] Allergies Active Allergy Reactions Criticality Noted Date Comments Levofloxacin Other (See Comments) High 06/13/2018 Knee pain Peanut Itching High 06/17/2018 Itching tongue Medications albuterol 2.5 mg /3 mL (0.083 %) neb solutionIndicat ions:Asthma Reliever,Other Asthma Indication Inhale 3 mL (2.5 mg) by nebulizer every 4 hours as needed 30 Vial 9 Active albuterol-iprat ropium (DUO-NEB) 0.5 mg-3 mg(2.5 mg base)/3 mL nebulizer solutionIndicat ions:Asthma Reliever Inhale 3 mL by nebulizer 4 times daily 10 Vial 9 Active escitalopram oxalate (LEXAPRO) 10 mg tablet Take 10 mg by mouth at bedtime Active albuterol (VENTOLIN HFA) 90 mcg/actuation HFA inhaler Inhale 2 Puffs every 4 hours as needed Active fluticasone furoate-vilante rol (BREO ELLIPTA) 200-25 mcg/dose dsdv Inhale 1 Puff daily Active predniSONE (DELTASONE) 20 mg tabletIndicatio ns:Other Asthma Indication Use as directed 15 Tab 9 Active tiotropium bromide (SPIRIVA RESPIMAT) 2.5 mcg/actuation mist Inhale 2.5 mcg daily 1 Inhaler 9 Active Additional Information Patient taking differently:2.5 mcg INHALATIONAT BEDTIME, Reported on 07/30/2019 montelukast (SINGULAIR) 10 mg tabletIndicatio ns:Asthma Controller Take 1 Tab (10 mg) by mouth at bedtime 30 Tab 9 Active carbinoxamine (PALGIC) 4 mg Take 4 mg by mouth once daily as needed (allergies) Active Active Problems Problem Noted Date Diagnosed Date Moderate episode of recurrent major depressive d isorder 07/29/2019 Social History Tobacco Use Types Packs/Day Years Used Date Smoking Tobacco: Never Smokeless Tobacco: Never Tobacco Cessation:Counseling Given: No Comments:denies alcolhol or illegal drugs Comments Unknown Sex and Gender Information Value Date Recorded Sex Assigned at Not on file Legal Sex Female 9:13 AM CDT Gender Identity Not on file Sexual Orientation [...] 07/30/2019 11:05 AM CDT Plan of Treatment Not on file Insurance [facility] [employer] [facility] [employer] [place] [id number] [facility] [address] [place] [phone] [facility] [address] [place] [phone] [place] [address] PLAN [facility] [address] [place] [id number] [facility] [place] [address] Care Teams Flight Agent Relationship Specialty Start Date End Date Jazmyne Jason MD [address] [place], [place] [id number] PCP - General Pediatrics 06/13/18 Jazmyne Jason MD [address] [place], [place] [id number] PCP - Insured Pediatrics 06/13/18
--- OUTSIDE RECORDS SUMMARY | 2024-12-07 15:28 | XMS_ITS | Encounter Summary ---
Author Organization [facility] Address [address] [place] [address] Care Team Providers Care Licensed Embalmer Name Role Phone Jazmyne Jason MD Primary Care Provider [phone] Jazmyne Jason MD Unavailable [phone] Encounter Details Date Type Department Care Team (Late st Contact Info) Description 07/01/2002 Record Update Interfaced Documentation [address] [facility] [address] [place] [address] Social History Tobacco Use Types Packs/Day Years Used Date Smoking Tobacco: Never Assessed Comments Unknown Sex and Gender Information Value Date Recorded Sex Assigned at Not on file Legal Sex Female 9:13 AM CDT Gender Identity Not on file Sexual Orientation Not on file documented as of this encounter Plan of Treatment Not on file documented as of this encounter Visit Diagnoses Not on filedocumented in this encounter Care Teams Licensed Embalmer Relationship Specialty Start Date End Date Jazmyne Jason MD [address] [facility] [address] [place] [address] PCP - General Pediatrics 06/13/18 Jazmyne Jason MD [address] [facility] [address] [place] [address] PCP - Insured Pediatrics 06/13/18 documented as of this encounter
--- OUTSIDE RECORDS SUMMARY | 2024-12-07 15:28 | XMS_ITS | Clinical Summary ---
Author Organization [facility] Address [address] [place] [address] Care Team Providers Care Dairy Husbandman Name Role Phone Chen [place] Primary Care Provider [phone] Allergies Active Allergy Reactions Criticality Noted Date Comments Cat Dander *Unknown 05/07/2024 sneezing Levofloxacin *Unknown 05/07/2024 joint pain Peanut Angioedema 05/07/2024 peanut allergenic extract Medications albuterol sulfate 90 mcg/actuation aebs Inhale 2 Puffs by mouth every 4 hours. Active fluticasone xnc-qmuwrdzmuiys-s ilanterol (TRELEGY ELLIPTA) 200-62.5-25 mcg inhaler Inhale 1 Puff by mouth once daily. Active Nucala 100 mg/mL subcutaneous autoinjector pen Inject 100 mg subcutaneous every 4 weeks. Active clobetasol (TEMOVATE) 0.05 % cream Apply topically to affected area(s) two times daily. Active medication order composer Zepbound- Compounded at 2.2 mg per week Active lamoTRIgine 200 mg tabletIndications: Recurrent major depressive disorder, in partial remission Take 1 Tablet (200 mg) by mouth once daily. 90 Tablet 11/20/19 25 Active venlafaxine (Effexor XR) 150 mg Extended-Release capsuleIndications :Posttraumatic stress disorder,Obsessive -compulsive disorder, unspecified type,Recurrent major depressive disorder, in partial remission Take 1 Capsule (150 mg) by mouth once daily in the morning. 90 Capsule 1 11/20/19 25 Active venlafaxine (Effexor XR) 75 mg cp24 Extended-Release capsuleIndications :Posttraumatic stress disorder,Obsessive -compulsive disorder, unspecified type,Recurrent major depressive disorder, in partial remission Take 1 Capsule (75 mg) by mouth once daily in the morning. Take with 150 mg for total of 225 mg per day. 90 Capsule 1 11/20/19 25 Active hydrOXYzine HCL (ATARAX) 25 mg tabletIndications: Posttraumatic stress disorder,Obsessive -compulsive disorder, unspecified type Take 25 mg by mouth up to twice daily for anxiety as directed. 60 Tablet 3 11/20/19 25 Active propranoloL (INDERAL) 20 mg tablet Take 1 Tablet by mouth once daily. 025 Discontin ued(*Med complete/ Regimen complete/ Level of care change) venlafaxine (EFFEXOR XR) 150 mg Extended-Release capsule Take 1 Capsule by mouth once daily. 025 Discontin ued(*Medi cation adjustmen t) venlafaxine (EFFEXOR XR) 75 mg cp24 Extended-Release capsule Take 1 Capsule by mouth once daily. 025 Discontin ued(*Medi cation adjustmen t) lamoTRIgine (LAMICTAL ODT) [address] 200 mg on the tongue. Place on tongue and move around in the mouth, will dissolve rapidly, can be swallowed with or without food or water. 025 Discontin ued(*Medi cation adjustmen t) clonazePAM (KLONOPIN) 1 mg tabletIndications: panic disorder Take 1 mg by mouth two times daily. 025 Discontin ued(*Med complete/ Regimen complete/ Level of care change) Active Problems Problem Noted Date Diagnosed Date [...] Encounters Date Type Department Care Team Description 11/19/2024 9:00 AM CDT Telemedicine [address] [address] Nickolas Zavala MD Mental Health Intake; Medication Management (Establish with psychiatry to manage medication ); Telehealth 11/18/2024 Travel from Last 3 Months Immunizations Immunization Administration Dates Next Due INFLUENZA, IIV3 PF (AGE >= 6 MO) 12/13/2023 Social History Tobacco Use Types Packs/Day Years Used Date Smoking Tobacco: Never Smokeless Tobacco: Never Tobacco Cessation:Counseling Given: Not Answered Alcohol Use Standard Drinks/Week Comments Never 0 (1 standard drink = 0.6 oz pur e alcohol) PHQ-2 Answer Date Recorded PHQ-2 TOTAL SCORE 2 11/18/2024 Social Connections Answer Date Recorded Do you [...] on file Legal Sex Female 3:34 PM BATCH UNIT TREATER Gender Identity Not on file Sexual Orientation Not on file Obstetrics History Last Filed Vital Signs Vital Sign Reading Time Taken Comments Blood Pressure 110/75 05/07/2024 3:54 PM BATCH UNIT TREATER Pulse 92 05/07/2024 3:54 PM BATCH UNIT TREATER Temperature - - Respiratory Rate - - Oxygen Saturation - - Inhaled Oxygen Concentration - - Weight 129 kg (284 lb 6.4 oz) 05/07/2024 3:54 PM BATCH UNIT TREATER Height 160 cm (5' 2.99) 05/07/2024 3:54 PM BATCH UNIT TREATER Body Mass Index 50.39 05/07/2024 3:54 PM BATCH UNIT TREATER Plan of Treatment Health Maintenance Due Date Last Done Comments HPV series for age 9-45 (1 - Risk 3-dose series) 10/18/2011 Tetanus booster 10/18/2011 HIV for age 15-65 10/18/2015 Hepatitis C screening for ag e 18-79 2018 Hepatitis B series for 19+ ( 1 of 3 - 19+ 3-dose series) 10/18/2019 COVID-19 vaccine series (2 - Moderna risk series) 01/10/2024 12/13/2023 Influenza Vaccine (#1) 2024 12/13/2023 BMI (ht and wt on same day) for age 18+ 05/07/2025 05/07/2024 Depression screening for age 12+ 11/19/2025 11/19/2024, 11/18/2024, 05/07/2024 Pap test for age 21-65 05/07/2027 05/07/2024 RSV vaccine for adults or (1 - 1-dose 75+ series) 10/18/2075 Pneumococcal series for age 6-49 Aged Out No longer eligible b ased on patient's age to complete this topic Procedures Procedure Name Priority Date/Time Associated Diagnosis Comments MEAT WASHER THIN PREP PAP SCREEN IMAGED Routine 05/07/2024 5:00 PM BATCH UNIT TREATER Screening for cervical cancer from Last 3 Months or Most Recently Relevant to Health Maintenance Results * MEAT WASHER THIN PREP PAP SCREEN IMAGED [[id number]] (05/07/2024 5:00 PM BATCH UNIT TREATER) Case Report Gynecologic Cytology Report Case: [id number] Authorizing Provider: Chen [place] DO Collected: 05/07/20241699 Ordering Location: [facility] Received: 05/07/2024 1700 Clinic First Screen: Bernarda Whiteside Rescreen: Juan Boudreaux Specimen: MEAT WASHER ThinPrep Vial Screening, Cervical 05/18/2024 8:30 AM CDT [facility] INTERPRETATION/ RESULT NEGATIVE FOR INTRAEPITHELIAL LESION OR MALIGNANCY (NIL) (none) 05/18/2024 8:30 AM CDT [facility] at 0830 CDT SPECIMEN ADEQUACY Satisfactory for evaluation Endocervical component present 05/18/2024 8:30 AM CDT [facility] Date of LMP 04/08/2024 05/18/2024 8:30 AM CDT [facility] Last Pap Date first 05/18/2024 8:30 AM CDT [facility] Last Pap Result First Pap/Unknown 8:30 AM CDT [facility] Abnormal Pap or [place] Bx in last 5 years No 05/18/2024 8:30 AM CDT [facility] Menstrual Status Irregular Periods 05/18/2024 8:30 AM CDT [facility] [place] Bx Done Today No 05/18/2024 8:30 AM CDT [facility] Additional Information None given 05/18/2024 8:30 AM CDT [facility] Comment: Cytology is screened at [facility] - [address], [place] [address] and [facility] - [address] [place] [address] and [facility] - [address] [place] [address] Interpreted at [facility] - [address], [place] [address] Automated Review Successful 05/18/2024 8:30 AM CDT [facility] Comment:Specimen processed s uccessfully by automated technical stenographer device, ThinPrep Imaging System, [employer] Note The pap test is a [...] and malignant lesions. 05/18/2024 8:30 AM CDT [facility] Other (Cervical) Non-Blood / Unknown 05/07/2024 5:00 PM BATCH UNIT TREATER 05/07/2024 5:00 PM BATCH UNIT TREATER us Chen [place] DO PATHOLOGY/CYTOLOGY Final R esult [facility] [address] [place] [id number], [place] from Last 3 Months or Most Recently Relevant to Health Maintenance Insurance [facility] [employer] Care Teams Dairy Husbandman Relationship Specialty Start Date End Date Chen [place] DO [address] [place] [address] PCP - General Family Practice 04/23/24
--- OUTSIDE RECORDS SUMMARY | 2024-12-07 15:29 | XMS_ITS | Clinical Summary ---
Author Organization [facility] Address [address] [place] [address] Phone Care Team Providers Care Integrative Medicine Physician Name Role Phone Jazmyne Jason MD Primary [...] Obesity 07/12/2018 Eczema 07/12/2018 Depression 07/12/2018 Immunizations Immunization Administration Dates Next Due DTaP 10/27/2004, 3,04/19/2001,02/14,2000 [...] Sex Assigned at Female 03/29/2020 5:35 PM ENVIRONMENTAL HEALTH NURSE Legal Sex Female 5:49 PM ENVIRONMENTAL HEALTH NURSE Gender Identity Female 03/29/2020 5:35 PM ENVIRONMENTAL HEALTH NURSE Sexual Orientation Straight 03/29/2020 5: 35 PM ENVIRONMENTAL HEALTH NURSE Last Filed Vital Signs Vital Sign Reading [...] Health Maintenance Due Date Last Done Comments PHQ Screening 2012 HPV Vaccines (3 - 3-dose series) 04/12/2018 01/18/2018, 07/18/2016 Meningococcal B Vaccine (2 of 2 - Trumenba SCDM 2-dose series) 06/27/2019 12/26/2018 DTaP,Tdap,and Td Vaccines (7 - Td or Tdap) 01/14/2022 01/15/2012, 10/27/2004, 04/22/2002, Additional history exists Influenza Vaccine (#1) 2024 9, 01/18/2018, 01/26/2017, Additional history exists COVID-19 Vaccine (2024- season) 2024 04/22/2020, 03/31/2020 Hepatitis B Vaccines Completed 11/01/2001, [...] on patient's age to complete this topic Insurance [employer] [place]UR[place]RETT [id number] [place] [address] [place] [address] [place] [address] [place] [address] PLAN LAURA BARRETT [id number] Advance Directives For more information, please contact: [phone] * Full Code (Latest Code Status on File) Date Activated Date Inactivated Comments 07/18/2018 1:42 PM 07/20/2018 4:53 PM Care Teams Integrative Medicine Physician Relationship Specialty Start Date End Date Jazmyne Jason MD [address] [address] PCP - General Pediatric Medicine 06/10/18
--- NOTE | 2024-12-07 15:58 | ED_ITS ---
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 Patient notes that she has been experiencing fatigue and exhaustion over the last 5 days. She has had sometimes lightheadedness and a little dizziness with this. She gets better when she goes and sleeps and lies down. She had a cold last week at but tested negative for COVID. Her symptoms are mainly sneezing. Symptoms have resolved. Today she notes that she had the onset of a rapid heart rate with minimal activity after she got up this morning. Heart rate was up to 135 and lasted for as long as she was upright. When she sat down her heart rate dropped to 120 and then to 110. She states that she felt odd during this experience. She notes that her oximetry was okay. She notes that when she was standing up she would become intermittently lightheaded with vision that would blur and unclear. This has not happened to her in the past. She denies shortness of breath or a cough. Patient denies chest pain leg pain leg swelling history of DVT fever cough congestion today. She does note extended car ride from [place] 1 month ago but states they stopped frequently. Denies alcohol use, vomiting, diarrhea. Does note that over the past 5 days she has had increased stressors with school. Patient adamantly denies any possibility of Related Data Home Medications ?Medication ?Instructions ?Recorded ?Confirmed albuterol sulfate PO 01/28/24 clobetasol topical 01/28/24 clonazepam .ROUTE 01/28/24 sdgqfizdoez-yzdcxjuib-bolrckoc inhalation 01/28/24 lamotrigine 200 mg PO DAILY 01/28/24 mepolizumab subcut 01/28/24 propranolol .ROUTE 01/28/24 tirzepatide (weight loss) 7.5 mg subcut QWEEK 01/28/24 12/07/24 venlafaxine PO 01/28/24 albuterol sulfate 90 mcg/actuation 2 puff inhalation Q 4-6H PRN 12/07/24 12/07/24 aerosol inhaler hydroxyzine HCl .ROUTE PRN 12/07/24 mepolizumab subcut .qmonth 12/07/24 venlafaxine 100 mg tablet 225 mg PO DAILY 12/07/24 Allergies Allergy/AdvReac Type Severity Reaction Status Date / Time peanut Allergy Unknown itchy Verified 12/07/24 15:32 throat levofloxacin (From Levaquin) AdvReac Unknown Joint Pain Verified 12/07/24 15:32 Review of Systems Status of ROS: Reports: 10 or more systems reviewed and unremarkable except as noted in History and below Const: Reports: fatigue; Denies: fever or chills Eyes: Reports: change in vision and blurry vision; Denies: eye discharge or seeing flashes ENMT: Denies: throat pain, neck pain, throat swelling or nasal congestion Cardio: Reports: lightheadedness; Denies: chest pain, edema, swelling of feet/ankles or shortness of breath with exertion Resp: Denies: shortness of breath, cough or wheezing GI: Denies: abdominal pain, nausea, vomiting or diarrhea : Denies: painful urination or urinary frequency Musculo: Denies: back pain or neck pain Integ/Breast: Denies: rash Neuro: Denies: headache, weakness in extremities or lack of coordination Endo: Reports: fatigue Allergy/Immuno: Denies: throat swelling or wheezing PFSH PFSH Social History Smoking Status: Never smoker Do you use any of these nicotine containing products: None Non-prescribed substance use: denies use service: No Exam Narrative: Exam Narrative: alert and oriented. Very well-spoken young woman no acute distress. External ears eyes nose clear. Oral cavity with moist mucous membranes no erythema or exudate in the posterior oropharynx. Neck is supple. Do not detect any lymphadenopathy. Heart with a regular rate and rhythm. No murmurs rubs. Lungs are clear bilaterally. Abdomen soft nontender. Lower extremities show no calf tenderness negative Homans sign. Calves are symmetrical. Const: Vital Signs, click to edit/add: Vital Signs - 24 hr 12/07/24 15:30 12/07/24 16:56 12/07/24 17:00 Temperature 98 F Pulse Rate 85 88 Pulse Rate [Pulse Oximeter] 101 H Respiratory Rate 18 12 27 H Blood Pressure Blood Pressure [Ri ght Upper Arm] 108/76 Pulse Oximetry 99 98 99 Oxygen Delivery Me thod Room Air 12/07/24 17:02 12/07/24 17:15 12/07/24 17:30 Temperature Pulse Rate 89 87 94 Pulse Rate [Pulse Oximeter] Respiratory Rate 18 Blood Pressure 118/73 Blood Pressure [Ri ght Upper Arm] Pulse Oximetry 100 98 99 Oxygen Delivery Me thod 12/07/24 17:32 12/07/24 17:33 12/07/24 17:45 Temperature Pulse Rate 100 98 100 Pulse Rate [Pulse Oximeter] Respiratory Rate 24 Blood Pressure 142/108 H Blood Pressure [Ri ght Upper Arm] Pulse Oximetry 100 100 99 Oxygen Delivery Me thod 12/07/24 18:00 12/07/24 18:02 12/07/24 18:15 Temperature Pulse Rate 97 95 93 Pulse Rate [Pulse Oximeter] Respiratory Rate Blood Pressure 118/85 Blood Pressure [Ri ght Upper Arm] Pulse Oximetry 99 99 98 Oxygen Delivery Me thod Documenting provider has reviewed patient's vital signs: yes Course Course ED Course: Differential diagnosis includes but is not limited to anxiety, dehydration, hyperthyroidism, electrolyte imbalance, UTI, COVID, pneumonia, PE,cardiac arrhythmia, mono. Given fatigue and persistent tachycardia would want to rule out underlying cardiac causes as well as infection.At this time patient has been placed on building serviceman will also have oximetry. Heart rate has gradually come down to mid 80s as I have been in the room. given recent travel 1 month ago PE will be in the differential although patient has normal oximetry. At this time checking D-dimer, CBC, comprehensive, troponin, magnesium, urinalysis, mono. EKG chest x-ray have been ordered. Will give patient 1 L of normal saline. Vital Signs Vital signs: Initial Vital Signs Temperature 98 F 12/07/24 15:30 Temperature Source Temporal Artery Scan 12/07/24 15:30 Pulse Rate 101 H 12/07/24 15:30 Respiratory Rate 18 12/07/24 15:30 Blood Pressure 108/76 12/07/24 15:30 Blood Pressure Mean 86 12/07/24 15:30 Blood Pressure Position Sitting 12/07/24 15:30 Pulse Oximetry 99 12/07/24 15:30 Oxygen Delivery Method Room Air 12/07/24 15:30 Vital Signs Temperature 98 F 12/07/24 15:30 Pulse Rate 101 H 12/07/24 15:30 Respiratory Rate 18 12/07/24 15:30 Blood Pressure 108/76 12/07/24 15:30 Pulse Oximetry 99 12/07/24 15:30 Oxygen Delivery Method Room Air 12/07/24 15:30 Temperature 98 F 12/07/24 15:30 Pulse Rate 93 12/07/24 18:15 Respiratory Rate 24 12/07/24 17:45 Blood Pressure 118/85 12/07/24 18:02 Pulse Oximetry 98 12/07/24 18:15 Oxygen Delivery Method Room Air 12/07/24 15:30 Medications Administered Medications: Discontinued Medications Generic Name Dose Route Start Last Admin Trade Name Freq PRN Reason Stop Dose Admin Sodium Chloride 1,000 mls @ 1,000 mls/hr 12/07/24 16:10 12/07/24 17:39 0.9 % Sodium Chloride 1000 Ml IV 12/07/24 17:09 1,000 mls/hr .Q1H SOUMYA Administration MDM - Arrhythmia/Palpitations MDM Narrative Medical decision making narrative: 1. Tachycardia-resolved prior to arrival although infrequently heart rate would be around 100. Heart rate noted to be down in the 80s occasionally. No evidence of pneumothorax, pneumonia, COVID, mono, a leukocytosis or elevated CRP or cardiac arrhythmia. Patient did receive 1 L of normal saline. She continues to complain of fatigue. Her TSH is normal as is her hemoglobin and white count and electrolytes. At this time I do wonder if there is an element of exhaustion or possibly anxiety as I have failed to find infection, underlying cause of this incident. D-dimer is negative and EKG is reassuring and oximetry is normal and thus I do not think we are dealing with PE, aortic dissection, myocarditis. Would recommend keeping well hydrated with electrolyte containing compounds, resting as much as possible. I have written note for the patient to share with her professors about 72 hours of extended deadlines or lienency.when it comes to attending class. 2. Ywugtgfgffp-jicwey-ly with primary MD over the next week. Return to the ER for onset of worsening symptoms. Try to rest as much as possible. Patient agrees that she feels comfortable going home. Medical Records Attestation: I reviewed the patient's medical records. Lab Data Attestation: I reviewed the patient's lab results. Labs: Lab Results 12/07/24 12/07/24 12/07/24 Range/Units 16:08 16:25 16:39 WBC 11.36 H (4.50-11.00) K/uL RBC 4.99 (4.00-5.20) m/uL Hgb 12.9 (12.0-16.0) gm/dL Hct 41.6 (33.0-51.0) % MCV 83 (80-100) fL MCH 26 (26-34) pg MCHC 31 L (32-36) gm/dL RDW Coeff of Tahira 13.5 (11.5-15.5) % Plt Count 481 H (140-440) K/uL Neut % (Auto) 60.7 (42.0-72.0) % Lymph % (Auto) 29.6 (20-44) % [place] % (Auto) 7.5 (0.0-11.0) % Eos % (Auto) 1.5 (0.0-7.0) % Baso % (Auto) 0.4 (0.0-3.0) % Neut # (Auto) 6.90 (1.7-7.0) K/uL Lymph # (Auto) 3.40 H (0.90-2.90) K/uL [place] # (Auto) 0.90 (0.00-0.90) K/UL Eos # (Auto) 0.20 (0.00-0.50) K/uL Baso # (Auto) 0.00 (0.00-0.30) K/uL Abs Immat Gran (auto) 0.00 (0.00-0.30) K/uL Imm/Tot Granulo (auto) 0.3 % D-Dimer Quant (PE/DVT) < 0.27 (0.00-0.50) ug/ml Sodium 139 (135-149) mmol/L Potassium 4.5 (3.6-5.1) mmol/L Chloride 100 (96-114) mmol/L Carbon Dioxide 31 (20-32) mmol/L Anion Gap 8 (7-15) mEq/L BUN 17 (5-24) mg/dL Creatinine 1.1 (0.5-1.5) mg/dL Estimated GFR 72 ml/min Glucose 69 (60-115) mg/dL Calcium 9.4 (8.4-10.6) mg/dL Magnesium 2.0 (1.5-2.6) mg/dL Total Bilirubin 0.2 (0.1-1.5) mg/dL AST 27 (12-35) U/L ALT 18 (4-35) U/L Alkaline Phosphatase 71 (40-150) U/L Total Protein 7.5 (6.0-8.3) g/dL Albumin 4.6 (3.3-5.0) g/dL TSH 1.040 (0.270-4.200) uIU/mL Urine Color Light yellow (Yellow) Urine Appearance Clear (Clear) Urine pH 8.5 (5.0-8.5) Ur Specific [place] 1.020 (1.000-1.030) Urine Protein Negative (Negative) Urine Glucose (UA) Negative (Negative) Urine Ketones Negative (Negative) Urine Blood Negative (Negative) Urine Nitrite Negative (Negative) Urine Bilirubin Negative (Negative) Urine Urobilinogen 0.2 (0.2-1.0) Ur Leukocyte Esterase Negative (Negative) Urine RBC 0-2 (0-2) Urine WBC 0-2 (0-5) Ur Squamous Epith Cells Few (None-Few) Urine Bacteria Moderate A (None) SARS-CoV-2 (PCR) Negative SARS-CoV-2 (Negative) Monoscreen Negative (Negative) POC Troponin I (0.01-0.04) ng/ml 12/07/24 Range/Units 16:40 WBC (4.50-11.00) K/uL RBC (4.00-5.20) m/uL Hgb (12.0-16.0) gm/dL Hct (33.0-51.0) % MCV (80-100) fL MCH (26-34) pg MCHC (32-36) gm/dL RDW Coeff of Tahira (11.5-15.5) % Plt Count (140-440) K/uL Neut % (Auto) (42.0-72.0) % Lymph % (Auto) (20-44) % [place] % (Auto) (0.0-11.0) % Eos % (Auto) (0.0-7.0) % Baso % (Auto) (0.0-3.0) % Neut # (Auto) (1.7-7.0) K/uL Lymph # (Auto) (0.90-2.90) K/uL [place] # (Auto) (0.00-0.90) K/UL Eos # (Auto) (0.00-0.50) K/uL Baso # (Auto) (0.00-0.30) K/uL Abs Immat Gran (auto) (0.00-0.30) K/uL Imm/Tot Granulo (auto) % D-Dimer Quant (PE/DVT) (0.00-0.50) ug/ml Sodium (135-149) mmol/L Potassium (3.6-5.1) mmol/L Chloride (96-114) mmol/L Carbon Dioxide (20-32) mmol/L Anion Gap (7-15) mEq/L BUN (5-24) mg/dL Creatinine (0.5-1.5) mg/dL Estimated GFR ml/min Glucose (60-115) mg/dL Calcium (8.4-10.6) mg/dL Magnesium (1.5-2.6) mg/dL Total Bilirubin (0.1-1.5) mg/dL AST (12-35) U/L ALT (4-35) U/L Alkaline Phosphatase (40-150) U/L Total Protein (6.0-8.3) g/dL Albumin (3.3-5.0) g/dL TSH (0.270-4.200) uIU/mL Urine Color (Yellow) Urine Appearance (Clear) Urine pH (5.0-8.5) Ur Specific [place] (1.000-1.030) Urine Protein (Negative) Urine Glucose (UA) (Negative) Urine Ketones (Negative) Urine Blood (Negative) Urine Nitrite (Negative) Urine Bilirubin (Negative) Urine Urobilinogen (0.2-1.0) Ur Leukocyte Esterase (Negative) Urine RBC (0-2) Urine WBC (0-5) Ur Squamous Epith Cells (None-Few) Urine Bacteria (None) SARS-CoV-2 (PCR) (Negative) Monoscreen (Negative) POC Troponin I 0.00 L (0.01-0.04) ng/ml Imaging Data Chest x-ray: Attestation: I have reviewed the pertinent imaging results. My impression: By my read no acute infiltrates. Radiologist's impression: Cardiomediastinal silhouette and pulmonary vasculature are normal. No focal consolidation. No layering pleural effusion. No pneumothorax. No acute chest wall abnormality. IMPRESSION: No focal consolidation. ECG Data Attestation: I personally reviewed and interpreted this ECG as follows: ECG interpretation date: 12/07/24 Interpretation: EKG by my read shows sinus rhythm at a rate of 81. I do not note any acute ST or T-wave changes. NE intervals, QT intervals within normal limits. Discharge Plan Discharge Clinical Impression: Tachycardia, Fatigue Patient Disposition: Home, Self-Care Condition: Improved Additional Instructions: Rest and push fluids. Electrolyte containing drinks would be helpful. Commend avoiding any stimulants such as caffeine. Seeking medical attention if you have worsening symptoms. Follow-up with your primary Dr [place] this week. Note for you for your college professors regarding 72 hours of recovery time. Prescriptions: No Action lamotrigine 200 mg PO DAILY venlafaxine PO mepolizumab [Nucala] subcut albuterol sulfate PO lvgkoxubjzl-kdthxhcsj-ocjfqhxt [Trelegy Ellipta] inhalation propranolol .ROUTE clonazepam .ROUTE clobetasol topical tirzepatide (weight loss) [Zepbound] 7.5 mg subcut QWEEK venlafaxine 100 mg tablet 225 mg PO DAILY hydroxyzine HCl .ROUTE PRN albuterol sulfate 90 mcg/actuation HFA aerosol inhaler 2 puff INHALATION Q4-6H PRN mepolizumab [Nucala] subcut .qmonth Follow Up/Referrals: Provider,Not a Local [Primary Care Provider, Family Practice] Stand Alone Forms: [employer] Info Instructions
--- NOTE | 2024-12-07 16:09 | CRLHL7_ITS ---
For Patients: As a result of the Cures Act, medical imaging exams and procedure reports are released immediately into your electronic medical record. You may view this report before your referring provider. If you have questions, please contact your health care provider. INDICATION: Tachycardia. TECHNIQUE: Chest 1 view(s) COMPARISON: Chest radiograph dated 06/01/2024. FINDINGS: Cardiomediastinal silhouette and pulmonary vasculature are normal. No focal consolidation. No layering pleural effusion. No pneumothorax. No acute chest wall abnormality. IMPRESSION: No focal consolidation. Dictated by Jay Pearce MD @ 12/07/2024 5:01:05 PM (Electronically Signed)
[2024-12-07 16:40] LABS: Appearance Urine Clear (Clear)
[2024-12-07 16:52] LABS: Hematocrit* 41.6 % (33.0-51.0); Hemoglobin* 12.9 gm/dL (12.0-16.0); Immature Granulocytes Pct Auto 0.3 %; Mean Corpuscular HGB Conc 31 gm/dL (32-36); Mean Corpuscular Hemoglobin 26 pg (26-34); Mean Corpuscular Volume 83 fL (80-100); RDW Coefficient of Variation % 13.5 % (11.5-15.5); Red Blood Count* 4.99 m/uL (4.00-5.20); White Blood Count* 11.36 K/uL (4.50-11.00)
[2024-12-07 16:57] LABS: Immature Granulocytes Abs Auto 0.00 K/uL (0.00-0.30); Lymphocytes Absolute Auto 3.40 K/uL (0.90-2.90); Slide Review Reflex No
[2024-12-07 17:10] LABS: Albumin* 4.6 g/dL (3.3-5.0); Chloride* 100 mmol/L (96-114); Sodium* 139 mmol/L (135-149)
[2024-12-07 17:11] LABS: Potassium* 4.5 mmol/L (3.6-5.1)
[2024-12-07 17:13] LABS: Troponin, Point-of-Care* 0.00 ng/ml (0.01-0.04)
[2024-12-07 17:13] LABS: Alanine Aminotransferase* 18 U/L (4-35); Alkaline Phosphatase* 71 U/L (40-150); Anion Gap 8 mEq/L (7-15); Aspartate Amino Transferase* 27 U/L (12-35); Bilirubin Total* 0.2 mg/dL (0.1-1.5); Blood Urea Nitrogen* 17 mg/dL (5-24); Calcium* 9.4 mg/dL (8.4-10.6); Carbon Dioxide* 31 mmol/L (20-32); Creatinine* 1.1 mg/dL (0.5-1.5); Estimated Glomerular Filt Rate 72 ml/min; Glucose* 69 mg/dL (60-115); Total Protein* 7.5 g/dL (6.0-8.3)
[2024-12-07 17:16] LABS: D Dimer Quantitative* < 0.27 ug/ml (0.00-0.50); Mono Screen* Negative (Negative)
[2024-12-07 17:34] LABS: SARS PCR* Negative SARS-CoV-2 (Negative)
[2024-12-07 17:57] LABS: TSH With Reflex to FT4* 1.040 uIU/mL (0.270-4.200)
== END 2024-12-07 18:46 | disposition home or self-care (01) ==
PROVIDERS: Emergency Provider Family Medicine
DX: R00.0 Tachycardia, unspecified (principal); R53.83 Other fatigue; R42 Dizziness and giddiness
CPT/HCPCS: 36415; 71045; 80053; 81001; 83735; 84443; 84484; 85025; 85379; 86308; 87086; 87635; 93005; 94761; 96360; 99284; 99285; J7030